=== PATIENT | female | born 1940 | race Caucasian/White ===

== ENCOUNTER 2016-08-26 16:20 | Inpatient (IN) | payer MEDICARE, MEDICAID ==
[~2016-08-26] VITALS: Ht 157.5 cm; Wt 52.0 kg
[~2016-08-26 16:20] MED LIST: GABA300 PO; GLUC10TA3 PO; LOTE20TA PO; METF-324 PO; NOVONP2 SQ; ONDA1TAB16 PO; PREV30CA36 PO; PROT40TA PO; TOPR50TA PO; ZOFR4TAB PO
[2016-08-26 16:21] VITALS: BP 180/78; PULSE 102; RESP 20; TEMP 99.4; O2SAT 96
[2016-08-26 16:41] VITALS: BP 197/85; PULSE 94; RESP 16; O2SAT 96
--- NOTE | 2016-08-26 16:43 | PD ---
HPI Chief Complaint: GI Complaint Time Seen by Provider: 16:40 Travel History International Travel<30 days: No Contact w/Intl Traveler<30days: No Traveled to known affect area: No History of Present Illness HPI 75-year-old female with history of diabetes, hypertension, CAD with previous CABG and stents, presents to the ER today brought in by her daughter because she 's had several days' history of nausea, burning on urination, feeling weak, headaches, 5 at 10 chest discomfort. She denies any shortness of breath, diarrhea, or other symptoms. Modifying Factors: None Associated Signs & Symptoms: Nausea, vomiting, burning on urination, feeling weak, headaches, chest discomfort Risk Factors: Diabetic, heart history PFSH Past Medical History Hx Anticoagulant Therapy: Yes (ASA) Arthritis: Yes Asthma: No Autoimmune Disease: No Blood Disorders: No Anxiety: Yes Depression: Yes Heart Rhythm Problems: No Cancer: No Cardiovascular Problems: Yes High Cholesterol: Yes Chemotherapy: No Chest Pain: Yes Congestive Heart Failure: No COPD: No Cerebrovascular Accident: No Coronary Artery Disease: Yes Diabetes: Yes Diminished Hearing: No Endocrine: Yes GERD: No Glaucoma: No Genitourinary: No Headaches: Yes Hepatitis: No Hiatal Hernia: No Hypertension: Yes Immune Disorder: No Kidney Stones: No Musculoskeletal: Yes Neurologic: No Psychiatric: No Reproductive: No Respiratory: No Migraines: No Myocardial Infarction: Yes Radiation Therapy: No Renal Failure: No Seizures: No Sickle Cell Disease: No Sleep Apnea: No Thyroid Disease: No Ulcer: No Past Surgical History Abdominal Surgery: Yes (gallbladder removed) AICD: No Appendectomy: Yes (stones) Arteriovenous Shunt: No Cardiac Surgery: Yes (open heart (2002)) Cholecystectomy: No Coronary Artery Bypass Graft: Yes Ear Surgery: No Endocrine Surgery: No Eye Surgery: No Genitourinary Surgery: No Gynecologic Surgery: No Insulin Pump: No Joint Replacement: No Oral Surgery: No Thoracic Surgery: No Social History Alcohol Use: No Tobacco Use: No Substance Use: No Allergies-Medications (Allergen,Severity, Reaction): Coded Allergies: No Known Allergies (Verified , 08/26/16) Reported Meds & Prescriptions Reported Meds & Active Scripts Active Zofran (Ondansetron HCl) 4 Mg Tab 4 Mg PO Q6HR PRN Protonix (Pantoprazole Sodium) 40 Mg Tab 40 Mg PO DAILY Reported Metoprolol Tartrate 50 Mg Tab 50 Mg PO DAILY Metformin ER (Metformin HCl) 1,000 Mg Kamran 1,000 Mg PO BID With evening meal Prevacid (Lansoprazole) 30 Mg Capdr 30 Mg PO DAILY Novolin N Inj (Insulin Human NPH) 1,000 Unit/10 Ml Vial 20 Units SQ HS Novolin N Inj (Insulin Human NPH) 1,000 Unit/10 Ml Vial 10 Units SQ DAILY Glipizide 10 Mg Tab 10 Mg PO DAILY Take 30 minutes before a meal Gabapentin 300 Mg Cap 300 Mg PO TID Lotensin (Benazepril HCl) 20 Mg Tab 20 Mg PO DAILY Review of Systems Except as stated in HPI: all other systems reviewed are Neg Physical Exam Narrative GENERAL: Pleasant elderly female patient currently in mild distress. Awake and oriented 3. SKIN: Focused skin assessment warm/dry. HEAD: Atraumatic. Normocephalic. EYES: Pupils equal and round. No scleral icterus. No injection or drainage. ENT: No nasal bleeding or discharge. Mucous membranes pink and moist. NECK: Trachea midline. No JVD. CARDIOVASCULAR: Regular rate and rhythm. No murmur appreciated. RESPIRATORY: No accessory muscle use. Clear to auscultation. Breath sounds equal bilaterally. GASTROINTESTINAL: Abdomen soft, non-tender, nondistended. Hepatic and splenic margins not palpable. MUSCULOSKELETAL: No obvious deformities. No clubbing. No cyanosis. No edema. NEUROLOGICAL: Awake and alert. No obvious cranial nerve deficits. Motor grossly within normal limits. Normal speech. PSYCHIATRIC: Appropriate mood and affect; insight and judgment normal. Data Data Last Documented VS Vital Signs Date Time Temp Pulse Resp B/P Pulse Ox O2 Delivery O2 Flow Rate FiO2 08/26/16 16:41 94 16 197/85 96 Room Air 08/26/16 16:21 99.4 Orders Electrocardiogram (08/26/16 16:40) Complete Blood Count With Diff (08/26/16 16:40) Comprehensive Metabolic Panel (08/26/16 16:40) Lactic Acid Sepsis Protocol (08/26/16 16:40) Lipase (08/26/16 16:40) Ckmb (Isoenzyme) Profile (08/26/16 16:40) Troponin I (08/26/16 16:40) Urinalysis - C+S If Indicated (08/26/16 16:40) Blood Culture (08/26/16 16:40) Chest, Single Ap (08/26/16 16:40) Blood Glucose (08/26/16 16:40) Ecg Monitoring (08/26/16 16:40) Iv Access Insert/Monitor (08/26/16 16:40) Oximetry (08/26/16 16:40) Oxygen Administration (08/26/16 16:40) Urine Culture (08/26/16 17:00) Piperacil-Tazo 4.5 Gm Premix (Zosyn 4.5 (08/26/16 17:27) Admit To Inpatient (08/26/16 ) Code Status (08/26/16 18:24) Vital Signs (Adult) Q4H (08/26/16 18:24) Activity Oob With Assistance (08/26/16 18:24) Diet Regular Basic (08/26/16 Dinner) Sodium Chlor 0.9% 1000 Ml Inj (Ns 1000 M (08/26/16 18:24) Sodium Chloride 0.9% Flush (Ns Flush) (08/26/16 18:30) Sodium Chloride 0.9% Flush (Ns Flush) (08/26/16 21:00) Acetaminophen (Tylenol) (08/26/16 18:30) Ondansetron Inj (Zofran Inj) (08/26/16 18:30) Complete Blood Count With Diff (08/27/16 06:00) Creatine Kinase (Cpk) (08/26/16 18:24) Creatine Kinase (Cpk) (08/27/16 00:24) Pt Request For Service (08/26/16 18:24) Enoxaparin Inj (Lovenox Inj) (08/26/16 20:00) Naloxone Inj (Narcan Inj) (08/26/16 18:30) Inpatient Certification (08/26/16 ) Clonidine (Catapres) (08/26/16 18:30) Piperacil-Tazo 3.375 Gm Premix (Zosyn 3. (08/27/16 06:00) Labs Laboratory Tests Test 08/26/16 08/26/16 08/26/16 16:45 16:50 17:00 White Blood Count 9.5 TH/MM3 Red Blood Count 4.46 MIL/MM3 Hemoglobin 11.8 GM/DL Hematocrit 36.3 % Mean Corpuscular Volume 81.4 FL Mean Corpuscular Hemoglobin 26.5 PG Mean Corpuscular Hemoglobin 32.5 % Concent Red Cell Distribution Width 13.8 % Platelet Count 274 TH/MM3 Mean Platelet Volume 8.4 FL Neutrophils (%) (Auto) 79.5 % Lymphocytes (%) (Auto) 8.0 % Monocytes (%) (Auto) 10.2 % Eosinophils (%) (Auto) 1.9 % Basophils (%) (Auto) 0.4 % Neutrophils # (Auto) 7.6 TH/MM3 Lymphocytes # (Auto) 0.8 TH/MM3 Monocytes # (Auto) 1.0 TH/MM3 Eosinophils # (Auto) 0.2 TH/MM3 Basophils # (Auto) 0.0 TH/MM3 CBC Comment DIFF FINAL Differential Comment Sodium Level 137 MEQ/L Potassium Level 4.5 MEQ/L Chloride Level 104 MEQ/L Carbon Dioxide Level 24.3 MEQ/L Anion Gap 9 MEQ/L Blood Urea Nitrogen 25 MG/DL Creatinine 1.06 MG/DL Estimat Glomerular Filtration 51 ML/MIN Rate Random Glucose 186 MG/DL Calcium Level 9.3 MG/DL Total Bilirubin 0.3 MG/DL Aspartate Amino Transf 24 U/L (AST/SGOT) Alanine Aminotransferase 19 U/L (ALT/SGPT) Alkaline Phosphatase 162 U/L Total Creatine Kinase 95 U/L Troponin I LESS THAN 0.02 NG/ML Total Protein 7.7 GM/DL Albumin 3.3 GM/DL Lipase 132 U/L Lactic Acid Level 3.0 mmol/L Urine Color YELLOW Urine Turbidity CLOUDY Urine pH 5.5 Urine Specific [place] 1.026 Urine Protein 30 mg/dL Urine Glucose (UA) TRACE mg/dL Urine Ketones NEG mg/dL Urine Occult Blood SMALL Urine Nitrite NEG Urine Bilirubin NEG Urine Urobilinogen 2.0 MG/DL Urine Leukocyte Esterase LARGE Urine RBC 16 /hpf Urine WBC 157 /hpf Urine Squamous Epithelial 41 /hpf Cells Urine Transitional Epithelial 1 /hpf Cells Urine Renal Epithelial Cells 1 /hpf Urine Bacteria MANY /hpf Urine Mucus FEW /lpf Microscopic Urinalysis Comment CATH-CULTURE IND MDM Medical Decision Making Medical Screen Exam Complete: Yes Emergency Medical Condition: Yes Medical Record Reviewed: Yes Interpretation(s) EKG shows sinus tachycardia rate of 100 bpm with no signs of acute ST-T changes. Laboratory Tests Test 5/7/17 5/7/17 5/7/17 16:45 16:50 17:00 Mean Corpuscular Hemoglobin 26.5 PG (27.0-34.0) Neutrophils (%) (Auto) 79.5 % (16.0-70.0) Lymphocytes (%) (Auto) 8.0 % (9.0-44.0) Monocytes (%) (Auto) 10.2 % (0.0-8.0) Lymphocytes # (Auto) 0.8 TH/MM3 (1.0-4.8) Monocytes # (Auto) 1.0 TH/MM3 (0-0.9) Blood Urea Nitrogen 25 MG/DL (7-18) Creatinine 1.06 MG/DL (0.50-1.00) Estimat Glomerular Filtration 51 ML/MIN (>89) Rate Random Glucose 186 MG/DL (74-106) Alkaline Phosphatase 162 U/L (45-117) Troponin I LESS THAN 0.02 NG/ML (0.02-0.05) Albumin 3.3 GM/DL (3.4-5.0) Lactic Acid Level 3.0 mmol/L (0.4-2.0) Urine Turbidity CLOUDY (CLEAR) Urine Protein 30 mg/dL (NEG-TRACE) Urine Occult Blood SMALL (NEG) Urine Leukocyte Esterase LARGE (NEG) Urine RBC 16 /hpf (0-3) Urine WBC 157 /hpf (0-5) Urine Bacteria MANY /hpf (NONE) Urine Mucus FEW /lpf (OCC) Last 24 hours Impressions Chest X-Ray 08/26/16 1640 Signed Impressions: Service Date/Time: Friday, August 26, 2016 16:44 - CONCLUSION: 1. Basilar atelectasis without dense consolidation or effusion. Manan Coyle MD Differential Diagnosis General weakness, headaches, chest discomfort, urinary symptoms, nausea and vomitinggastroenteritis versus viral syndrome versus pneumonia versus UTI versus sepsis versus dehydration versus metabolic issues Narrative Course Chest x-ray did not show any signs of acute processes. Patient is tachycardic in the ER. She has obvious UTI. IV antibiotics are initiated after cultures are drawn. At this point, there is concern for sepsis. My plan would be to admit the patient for further treatment. Case is admitted to hospitalist service. Diagnosis Primary Impression: UTI (urinary tract infection) Additional Impression: Sepsis Admitting Information Admitting Physician Requests: Admit Inez Fragoso MD August 26, 2016 16:43
[2016-08-26] MEDS ORDERED: NOVONP2 SQ ×2 (16:54)
[2016-08-26] MEDS ORDERED: GLIP10TA6 PO (16:54)
[2016-08-26] MEDS ORDERED: METF-382 PO (16:54)
[2016-08-26] MEDS ORDERED: METO50TA PO (16:54)
[2016-08-26] MEDS ORDERED: LOTE20TA PO (16:54)
[2016-08-26] MEDS ORDERED: PREV30CA11 PO (16:54)
[2016-08-26] MEDS ORDERED: GABA300C5 PO (16:54)
[2016-08-26 17:03] LABS: AUTOMATED NEUTROPHIL # 7.6 TH/MM3 (1.8-7.7); BASOPHIL % 0.4 % (0.0-2.0); EOSINOPHIL # 0.2 TH/MM3 (0-0.4); EOSINOPHIL % 1.9 % (0.0-4.0); HEMATOCRIT 36.3 % (35.0-46.0); HEMO FLAGS DIFF FINAL; LYMPHOCYTE # 0.8 TH/MM3 (1.0-4.8); MEAN CELL VOLUME 81.4 FL (80.0-100.0); MEAN CORPUSCULAR HEMOGLOBIN 26.5 PG (27.0-34.0); MEAN CORPUSCULAR HGB CONC 32.5 % (32.0-36.0); MONO % 10.2 % (0.0-8.0); NEUT % 79.5 % (16.0-70.0); PLATELET COUNT 274 TH/MM3 (150-450); RED BLOOD COUNT 4.46 MIL/MM3 (4.00-5.30); RED CELL DISTRIBUTION WIDTH 13.8 % (11.6-17.2); WHITE BLOOD COUNT 9.5 TH/MM3 (4.0-11.0)
[2016-08-26 17:23] LABS: BACTERIA, URINE MANY /hpf; BLOOD, URINE SMALL (NEG); GLUCOSE,URINE TRACE mg/dL (NEG); KETONE, URINE NEG (NEG); MUCUS URINE FEW /lpf (OCC); NITRITE,URINE NEG (NEG); PH, URINE 5.5 (5.0-8.5); RENAL EPITHELIAL CELLS 1 /hpf; SQUAMOUS EPITHELIAL CELL URINE 41 /hpf (0-5); TRANSITIONAL EPI CELLS, URINE 1 /hpf; URINE COLOR YELLOW (YELLW/STRAW)
[2016-08-26 17:24] LABS: COMMENT (UR) CATH-CULTURE IND; CULTURE IF INDICATED CATH CULTURE IND
[2016-08-26] MEDS ORDERED: PIPERACIL-TAZO 4.5 GM PREMIX 100 ML IV STA (17:27)
[2016-08-26 18:01] LABS: ALKALINE PHOSPHATASE 162 U/L (45-117); ALT (GPT) 19 U/L (10-53); ANION GAP 9 MEQ/L (5-15); AST (GOT) 24 U/L (15-37); BICARBONATE 24.3 MEQ/L (21.0-32.0); BLOOD UREA NITROGEN 25 MG/DL (7-18); CHLORIDE 104 MEQ/L (98-107); CREATINE KINASE 95 U/L (26-192); GLOMERULAR FILTRATION RATE 51 ML/MIN (>89); POTASSIUM 4.5 MEQ/L (3.5-5.1); SODIUM (NA) 137 MEQ/L (136-145); TOTAL BILIRUBIN ADULT 0.3 MG/DL (0.2-1.0)
--- NOTE | 2016-08-26 18:22 | RADRPT ---
EXAM DATE/TIME: 08/26/2016 16:44 [facility] COMPARISON: CHEST SINGLE AP, March 19, 2016, 23:49. INDICATIONS : Chest pain. MEDICAL HISTORY : Coronary artery disease. SURGICAL HISTORY : CABG. ENCOUNTER: Initial ACUITY: 1 day PAIN SCORE: 0/10 LOCATION: Bilateral chest FINDINGS: There is basilar opacity most characteristic of atelectasis. Low lung volumes. No effusion. No pneumo thorax. Postoperative CABG. CONCLUSION: 1. Basilar atelectasis without dense consolidation or effusion. Manan Coyle MD on August 26, 2016 at 18:19 Board Certified Radiologist. This report was verified electronically.
[2016-08-26] MEDS ORDERED: NALOXONE HCL 0.4 MG/ML AMP IV PRN (18:30)
[2016-08-26] MEDS ORDERED: SODIUM CHLORIDE 0.9% FLUSH 10 ML FLUSH IV FLUSH PRN (18:30)
[2016-08-26] MEDS ORDERED: ACETAMINOPHEN 325 MG TAB PO PRN (18:30)
[2016-08-26] MEDS ORDERED: cloNIDine HCL 0.1 MG TAB PO PRN (18:30)
[2016-08-26] MEDS ORDERED: ONDANSETRON HCL 4 MG/2 ML VIAL IVP PRN (18:30)
--- NOTE | 2016-08-26 18:39 | HHI.HP ---
[facility] García Jordan M.D. Admission Diagnosis Diagnoses: (1) Sepsis Diagnosis: Principal (2) UTI (urinary tract infection) Diagnosis: Principal (3) Hypertensive urgency Diagnosis: Principal Travel History International Travel<30 Days: No Contact w/Intl Traveler <30 Da: No Traveled to Known Affected Are: No Sepsis Criteria SIRS Criteria (2 or more): Temp > 100.9 or < 96.8, Heart rate over 90 Sepsis Criteria (SIRS+source): Infect source susp/known Criteria Outcome: Meets severe sepsis criteria History of Present Illness Mrs. Zimmer is a 75 year old female. She is brought in with abdominal pain, dyspepsia, and vomiting. Findings indicate sepsis from a UTI. She also has HTN Urgency. Symptoms came on with in the last 48 hours. She has a history of UTIs with her last UTI about one year ago. No known prior history of Sepsis. No other complaints. Medical condition discussed with patient and family present in room. Review of Systems Constitutional: COMPLAINS OF: Fatigue, Fever, DENIES: Chills Endocrine: COMPLAINS OF: Polyuria, DENIES: Polydipsia, Polyphagia Eyes: DENIES: Blurred vision, Diplopia Ears, nose, mouth, throat: DENIES: Hearing loss, Vertigo Respiratory: DENIES: Cough, Shortness of breath Cardiovascular: DENIES: Chest pain, Palpitations, Syncope Gastrointestinal: DENIES: Abdominal pain, Black stools, Bloody stools Musculoskeletal: DENIES: Joint pain, Muscle aches Integumentary: DENIES: Abnormal pigmentation Hematologic/lymphatic: DENIES: Bruising Immunologic/allergic: DENIES: Eczema, Urticaria Neurologic: DENIES: Abnormal gait, Headache Psychiatric: DENIES: Anxiety, Confusion Past Family Social History Past Medical History CAD Old [place] HTN Anxiety Past Surgical History Cholecystectomy CABG Reported Medications Reported Meds & Active Scripts Active Zofran (Ondansetron HCl) 4 Mg Tab 4 Mg PO Q6HR PRN Protonix (Pantoprazole Sodium) 40 Mg Tab 40 Mg PO DAILY Reported Metoprolol Tartrate 50 Mg Tab 50 Mg PO DAILY Metformin ER (Metformin HCl) 1,000 Mg Kamran 1,000 Mg PO BID With evening meal Prevacid (Lansoprazole) 30 Mg Capdr 30 Mg PO DAILY Novolin N Inj (Insulin Human NPH) 1,000 Unit/10 Ml Vial 20 Units SQ HS Novolin N Inj (Insulin Human NPH) 1,000 Unit/10 Ml Vial 10 Units SQ DAILY Glipizide 10 Mg Tab 10 Mg PO DAILY Take 30 minutes before a meal Gabapentin 300 Mg Cap 300 Mg PO TID Lotensin (Benazepril HCl) 20 Mg Tab 20 Mg PO DAILY Allergies: Coded Allergies: No Known Allergies (Verified , 08/26/16) Family History DM2 Hyperlipidemia HTN CAD Social History No smoking No alcohol No drug abuse Physical Exam Vital Signs Vital Signs Date Time Temp Pulse Resp B/P Pulse Ox O2 Delivery O2 Flow Rate FiO2 08/26/16 16:41 94 16 197/85 96 Room Air 08/26/16 16:21 99.4 102 20 180/78 96 Room Air Physical Exam GENERAL: NAD, A&Ox3 SKIN: Warm and dry. HEAD: Normocephalic. EYES: No scleral icterus. No injection or drainage. NECK: Supple, trachea midline. No JVD or lymphadenopathy. CARDIOVASCULAR: Regular rate and rhythm without murmurs, gallops, or rubs. RESPIRATORY: Breath sounds equal bilaterally. No accessory muscle use. GASTROINTESTINAL: Abdomen soft, non-tender, nondistended. MUSCULOSKELETAL: No cyanosis, or edema. BACK: Nontender without obvious deformity. No CVA tenderness. Laboratory Laboratory Tests Test 08/26/16 08/26/16 08/26/16 16:45 16:50 17:00 White Blood Count 9.5 Red Blood Count 4.46 Hemoglobin 11.8 Hematocrit 36.3 Mean Corpuscular Volume 81.4 Mean Corpuscular Hemoglobin 26.5 Mean Corpuscular Hemoglobin 32.5 Concent Red Cell Distribution Width 13.8 Platelet Count 274 Mean Platelet Volume 8.4 Neutrophils (%) (Auto) 79.5 Lymphocytes (%) (Auto) 8.0 Monocytes (%) (Auto) 10.2 Eosinophils (%) (Auto) 1.9 Basophils (%) (Auto) 0.4 Neutrophils # (Auto) 7.6 Lymphocytes # (Auto) 0.8 Monocytes # (Auto) 1.0 Eosinophils # (Auto) 0.2 Basophils # (Auto) 0.0 CBC Comment DIFF FINAL Differential Comment Sodium Level 137 Potassium Level 4.5 Chloride Level 104 Carbon Dioxide Level 24.3 Anion Gap 9 Blood Urea Nitrogen 25 Creatinine 1.06 Estimat Glomerular Filtration 51 Rate Random Glucose 186 Calcium Level 9.3 Total Bilirubin 0.3 Aspartate Amino Transf 24 (AST/SGOT) Alanine Aminotransferase 19 (ALT/SGPT) Alkaline Phosphatase 162 Total Creatine Kinase 95 Troponin I LESS THAN 0.02 Total Protein 7.7 Albumin 3.3 Lipase 132 Lactic Acid Level 3.0 Urine Color YELLOW Urine Turbidity CLOUDY Urine pH 5.5 Urine Specific [place] 1.026 Urine Protein 30 Urine Glucose (UA) TRACE Urine Ketones NEG Urine Occult Blood SMALL Urine Nitrite NEG Urine Bilirubin NEG Urine Urobilinogen 2.0 Urine Leukocyte Esterase LARGE Urine RBC 16 Urine WBC 157 Urine Squamous Epithelial 41 Cells Urine Transitional Epithelial 1 Cells Urine Renal Epithelial Cells 1 Urine Bacteria MANY Urine Mucus FEW Microscopic Urinalysis Comment CATH-CULTURE IND Date/Time Procedure Status Source Growth 08/26/16 17:00 Urine Culture Received Urine Catheterized Urine Pending 08/26/16 16:50 Aerobic Blood Culture Received Blood Peripheral Pending 08/26/16 16:50 Anaerobic Blood Culture Received Blood Peripheral Pending Result Diagram: 08/26/16 1645 08/26/16 1645 Imaging Last Impressions Chest X-Ray 08/26/16 1640 Signed Impressions: Service Date/Time: Friday, August 26, 2016 16:44 - CONCLUSION: 1. Basilar atelectasis without dense consolidation or effusion. Manan Coyle MD Septic Shock Reassessment Heart: Regular rate and rhythm Lungs: Clear Skin: Warm Peripheral Pulses: Bounding Right Radial Bounding Left Radial Bounding Right Popliteal Bounding Left Popliteal Bounding Right Dorsalis Pedis Bounding Left Dorsalis Pedis Bounding Right Posterior Tibial Bounding Left Posterior Tibial Capillary Refill: Brisk, >2 seconds Assessment and Plan Problem List: (1) Sepsis ICD Code: A41.9 Status: Acute (2) UTI (urinary tract infection) ICD Code: N39.0 Status: Acute (3) Hypertensive urgency ICD Code: I16.0 Status: Acute (4) Vomiting ICD Code: R11.10 Status: Acute Assessment and Plan Assessment and Plan 75 year old female with sepsis secondary to UTI Sepsis Fevers at home and Tachycardia with UTI as infection IV Hydration Treat infection Follow vital signs UTI Zosyn Follow clinically for improvement Follow urine cultures This is the most suspected etiology for her sepsis HTN Urgency PRN clonidine Follow BP Vomiting PRN zofran Likely secondary to UTI [place] CAD Telemetry Hyperlipidemia No change to baseline treatments Anxiety Depression Continue baseline treatments DM2 Insulin Sliding Scale Follow blood sugars Diabetic Diet Physician Certification 2 Midnight Certification Type: Admission for Inpatient Services Order for Inpatient Services The services are ordered in accordance with Medicare regulations or non- Medicare payer requirements, as applicable. In the case of services not specified as inpatient-only, they are appropriately provided as inpatient services in accordance with the 2-midnight benchmark. Estimated LOS (days): 2 days is the estimated time the patient will need to remain in the hospital, assuming treatment plan goals are met and no additional complications. Post-Hospital Plan: Home Flo Alcaraz MD August 26, 2016 6:39 pm
[2016-08-26 18:53] LABS: LACTIC ACID GHOST NOT REPORTABLE
[2016-08-26] MEDS: SODIUM CHLOR 0.9% 1000 ML INJ 1,000 ML IV SCH (18:53)
[2016-08-26] MEDS: ENOXAPARIN SODIUM 40 MG/0.4 ML SYRINGE SQ SCH (18:53)
[2016-08-26 18:54] VITALS: BP 183/74; PULSE 90; RESP 13; O2SAT 96
[2016-08-26] MEDS ORDERED: GLUCAGON 1 MG/ML VIAL OTHER PRN (19:15)
[2016-08-26] MEDS ORDERED: DEXTROSE 50% IN WATER 50 ML VIAL(D50) IV PUSH PRN (19:15)
[2016-08-26] MEDS: SODIUM CHLORIDE 0.9% FLUSH 10 ML FLUSH IV FLUSH SCH (21:00)
[2016-08-26] MEDS: INSULIN ASPART SUPPLEMENTAL SCALE SQ SCH (21:33)
[2016-08-26 21:35] VITALS: BP 159/69; PULSE 88; RESP 20; O2SAT 96
[2016-08-26] MEDS: INSULIN HUMAN NPH 1,000 UNITS/10 ML VIAL SQ SCH (21:47)
[2016-08-27] VITALS (7 sets, daily range): BP systolic 90–175; BP diastolic 50–76; PULSE 63–100; RESP 16–17; TEMP 96.7–99.3; O2SAT 92–98
[2016-08-27 03:17] LABS: AUTOMATED NEUTROPHIL # 6.1 TH/MM3 (1.8-7.7); BASOPHIL # 0.1 TH/MM3 (0-0.2); BASOPHIL % 0.6 % (0.0-2.0); EOSINOPHIL # 0.1 TH/MM3 (0-0.4); EOSINOPHIL % 0.9 % (0.0-4.0); HEMATOCRIT 35.7 % (35.0-46.0); HEMO FLAGS DIFF FINAL; LYMPH % 10.7 % (9.0-44.0); LYMPHOCYTE # 0.9 TH/MM3 (1.0-4.8); MEAN CELL VOLUME 80.8 FL (80.0-100.0); MEAN CORPUSCULAR HEMOGLOBIN 26.3 PG (27.0-34.0); MEAN CORPUSCULAR HGB CONC 32.5 % (32.0-36.0); MONO % 11.3 % (0.0-8.0); NEUT % 76.5 % (16.0-70.0); PLATELET COUNT 251 TH/MM3 (150-450); RED BLOOD COUNT 4.42 MIL/MM3 (4.00-5.30); RED CELL DISTRIBUTION WIDTH 14.1 % (11.6-17.2)
[2016-08-27] MEDS: SODIUM CHLOR 0.9% 1000 ML INJ 1,000 ML IV SCH ×2 (04:08→16:32)
[2016-08-27] MEDS: PIPERACIL-TAZO 3.375 GM PREMIX 50 ML IV SCH ×2 (05:20→18:44)
[2016-08-27] MEDS: INSULIN ASPART SUPPLEMENTAL SCALE SQ SCH ×4 (06:11→21:14)
[2016-08-27] MEDS: INSULIN HUMAN NPH 1,000 UNITS/10 ML VIAL SQ SCH ×2 (09:44→21:14)
[2016-08-27] MEDS: METOPROLOL TARTRATE 50 MG TAB PO SCH (09:44)
[2016-08-27] MEDS: LISINOPRIL 20 MG TAB PO SCH (09:44)
[2016-08-27] MEDS: PANTOPRAZOLE SOD 40 MG DELAYED RELEASE TAB PO SCH (09:44)
[2016-08-27] MEDS: GABAPENTIN 300 MG CAP PO SCH ×3 (09:44→18:44)
[2016-08-27] MEDS: SODIUM CHLORIDE 0.9% FLUSH 10 ML FLUSH IV FLUSH SCH ×2 (09:45→21:00)
--- NOTE | 2016-08-27 10:38 | HHI.PR ---
Subjective Remarks Tachycardia present overnight. She is not yet stable for discharge. Additionally, it would be safest, given her degree of sepsis, to await blood cultures to pick an optimum oral therapy. No new complaints from the patient. She has some mild nausea remaining, but not like before. (she is haitian speaking, interview conducted in haitian) Objective Vital Signs Date Time Temp Pulse Resp B/P Pulse Ox O2 Delivery O2 Flow Rate FiO2 08/27/16 08:00 99.3 100 17 124/58 96 08/27/16 04:00 97.0 76 17 157/71 98 08/27/16 00:00 97.6 83 17 175/76 98 08/26/16 21:35 88 20 159/69 96 08/26/16 18:54 90 13 183/74 96 Room Air 08/26/16 16:41 94 16 197/85 96 Room Air 08/26/16 16:21 99.4 102 20 180/78 96 Room Air I/O 08/26/16 08/26/16 08/26/16 08/27/16 08/27/16 08/27/16 07:00 15:00 23:00 07:00 15:00 23:00 Intake Total 1645 ml Output Total 900 ml Balance 745 ml Intake Oral 720 ml IV Total 925 ml Output Urine Total 900 ml # Bowel Movements 4 Result Diagram: 08/27/16 0300 08/26/16 1645 Objective Remarks GENERAL: NAD, A&Ox3 SKIN: Warm and dry. HEAD: Normocephalic. EYES: No scleral icterus. No injection or drainage. NECK: Supple, trachea midline. No JVD or lymphadenopathy. CARDIOVASCULAR: Regular rate and rhythm without murmurs, gallops, or rubs. RESPIRATORY: Breath sounds equal bilaterally. No accessory muscle use. GASTROINTESTINAL: Abdomen soft, non-tender, nondistended. MUSCULOSKELETAL: No cyanosis, or edema. BACK: Nontender without obvious deformity. No CVA tenderness. A/P Problem List: (1) Sepsis ICD Code: A41.9 (2) UTI (urinary tract infection) ICD Code: N39.0 (3) Vomiting ICD Code: R11.10 (4) Hypertensive urgency ICD Code: I16.0 Assessment and Plan Sepsis HTN Urgency Vomiting Resolved Tachycardia remains UTI Await resolution of tachcyardia Further improvement in nausea should occur Follow urine cultures Continue IV Zosyn for now Flo Alcaraz MD August 27, 2016 10:38
--- NOTE | 2016-08-27 11:21 | EKG ---
Date Performed: 08/26/2016 Time Performed: 16:47:15 PTAGE: 75 years EKG: SINUS TACHYCARDIA WITH OCCASIONAL VENTRICULAR PREMATURE COMPLEXES NONSPECIFIC T-WAVE ABNORM ALITY ABNORMAL RHYTHM ECG PREVIOUS TRACING : 04/04/2010 18.09 DOCTOR: Jamin Jimenez Interpretating Date/Time 08/27/2016 11:16:23
[2016-08-27] MEDS ORDERED: VANCOMYCIN INJ 1,000 MG in SODIUM CHLOR 0.9% 250 ML INJ 250 ML IV SCH (16:00)
[2016-08-27] MEDS ORDERED: Vancomycin Consult Pharmacy 1 EA OTHER SCH (16:00)
[2016-08-27 17:35] LABS: C. DIFF EPI 027 PRESUMPTIVE NEGATIVE (NEGATIVE); C. DIFF TOXIN PCR NEGATIVE (NEGATIVE)
[2016-08-27] MEDS: ENOXAPARIN SODIUM 40 MG/0.4 ML SYRINGE SQ SCH (21:07)
[2016-08-28] MEDS: SODIUM CHLOR 0.9% 1000 ML INJ 1,000 ML IV SCH ×3 (00:52→21:01)
[2016-08-28 03:59] VITALS: BP 125/58; PULSE 64; RESP 18; TEMP 97.2; O2SAT 97
[2016-08-28] MEDS: PIPERACIL-TAZO 3.375 GM PREMIX 50 ML IV SCH ×2 (05:22→16:44)
[2016-08-28 05:44] LABS: HEMATOCRIT 28.9 % (35.0-46.0); MEAN CORPUSCULAR HGB CONC 32.9 % (32.0-36.0); PLATELET COUNT 195 TH/MM3 (150-450); RED BLOOD COUNT 3.52 MIL/MM3 (4.00-5.30); RED CELL DISTRIBUTION WIDTH 13.9 % (11.6-17.2); REVIEW FLAG FINAL
[2016-08-28 06:07] LABS: BICARBONATE 20.6 MEQ/L (21.0-32.0); POTASSIUM 3.8 MEQ/L (3.5-5.1)
[2016-08-28] MEDS: INSULIN ASPART SUPPLEMENTAL SCALE SQ SCH ×4 (06:18→20:57)
[2016-08-28 08:00] VITALS: BP 117/59; PULSE 69; RESP 16; TEMP 96.1; O2SAT 98
[2016-08-28] MEDS: SODIUM CHLORIDE 0.9% FLUSH 10 ML FLUSH IV FLUSH SCH ×2 (09:00→20:58)
[2016-08-28] MEDS: METOPROLOL TARTRATE 50 MG TAB PO SCH (09:38)
[2016-08-28] MEDS: GABAPENTIN 300 MG CAP PO SCH ×3 (09:38→16:45)
[2016-08-28] MEDS: LISINOPRIL 20 MG TAB PO SCH (09:38)
[2016-08-28] MEDS: PANTOPRAZOLE SOD 40 MG DELAYED RELEASE TAB PO SCH (09:38)
[2016-08-28] MEDS: INSULIN HUMAN NPH 1,000 UNITS/10 ML VIAL SQ SCH (09:39)
--- NOTE | 2016-08-28 10:30 | HHI.PR ---
Subjective Remarks Follow-up sepsis/UTI/hypertensive urgency 08/28/16-patient seen and examined, currently afebrile and no acute event overnight. No nausea or vomiting with by mouth intake last night however hasn' t taken anything this morning Objective Vitals Vital Signs Date Time Temp Pulse Resp B/P Pulse Ox O2 Delivery O2 Flow Rate FiO2 08/28/16 08:00 96.1 69 16 117/59 98 08/28/16 03:59 97.2 64 18 125/58 97 08/27/16 23:49 99.0 69 16 106/52 96 08/27/16 20:00 96.9 63 17 103/51 98 08/27/16 16:00 96.7 87 16 90/50 97 08/27/16 12:00 97.0 63 16 100/50 92 I/O 08/27/16 08/27/16 08/27/16 08/28/16 08/28/16 08/28/16 07:00 15:00 23:00 07:00 15:00 23:00 Intake Total 1645 ml 884 ml 859 ml 791 ml Output Total 900 ml Balance 745 ml 884 ml 859 ml 791 ml Intake Oral 720 ml 360 ml 120 ml 120 ml IV Total 925 ml 524 ml 739 ml 671 ml Output Urine Total 900 ml # Voids 4 2 3 # Bowel Movements 4 6 Result Diagram: 08/28/16 0520 08/28/16 0520 Imaging Last Impressions Chest X-Ray 08/26/16 1640 Signed Impressions: Service Date/Time: Friday, August 26, 2016 16:44 - CONCLUSION: 1. Basilar atelectasis without dense consolidation or effusion. Manan Coyle MD Objective Remarks GENERAL: NAD SKIN: Warm and dry. HEAD: Normocephalic. EYES: No scleral icterus. No injection or drainage. NECK: Supple, trachea midline. No JVD or lymphadenopathy. CARDIOVASCULAR: Regular rate and rhythm without murmurs, gallops, or rubs. RESPIRATORY: Breath sounds equal bilaterally. No accessory muscle use. GASTROINTESTINAL: Abdomen soft, non-tender, nondistended. MUSCULOSKELETAL: No cyanosis, or edema. BACK: Nontender without obvious deformity. No CVA tenderness. A/P Problem List: (1) Sepsis ICD Code: A41.9 Status: Acute (2) UTI (urinary tract infection) ICD Code: N39.0 Status: Acute (3) Hypertensive urgency ICD Code: I16.0 Status: Acute (4) Vomiting ICD Code: R11.10 Status: Acute (5) ARF (acute renal failure) ICD Code: N17.9 Status: Acute (6) Diabetes mellitus, type II ICD Code: E11.9 Status: Acute (7) Hypoglycemia associated with diabetes ICD Code: E11.649 Status: Acute Assessment and Plan 75-year-old female with Sepsis: Initially thought to be due to UTI however urine culture negative Currently on vancomycin and Zosyn pending blood culture NTD C. difficile PCR negative UTI: On Zosyn however urine culture now negative Acute renal failure: Slight Worsening renal indices,increase IV fluid hydration to 125ml/hr and monitor BUN and creatinine. Avoid all nephrotoxic drugs Hypoglycemia associated with diabetes type 2 Hold NPH patient will decrease intake and low BG Continue insulin sliding scale medium with fingerstick blood glucose monitoring Hypertensive urgency Resolved Continue outpatient medication including lisinopril and Lopressor with holding parameters Generalized weakness PT consult to treat and eval DVT prophylaxis: Lovenox Discharge Planning Likely discharge 08/29/16 Bryon Ty MD August 28, 2016 10:30
[2016-08-28 12:00] VITALS: BP 132/61; PULSE 57; RESP 16; TEMP 97.9; O2SAT 96
[2016-08-28 16:00] VITALS: BP 158/70; PULSE 64; RESP 16; TEMP 96.9; O2SAT 96
[2016-08-28] MEDS ORDERED: VANCOMYCIN 1,000 MG/NS 250 ML IV SCH ×2 (17:00)
[2016-08-28 20:00] VITALS: BP 141/65; PULSE 70; RESP 16; TEMP 99.1; O2SAT 95
[2016-08-28] MEDS: ENOXAPARIN SODIUM 40 MG/0.4 ML SYRINGE SQ SCH (20:59)
[2016-08-28] MEDS: LACTOBACILLUS ACIDOPHILUS TAB PO SCH (20:59)
[2016-08-29] VITALS: BP 135/61; PULSE 72; RESP 16; TEMP 98.2; O2SAT 98
[2016-08-29] MEDS: PIPERACIL-TAZO 3.375 GM PREMIX 50 ML IV SCH (05:38)
[2016-08-29] MEDS: SODIUM CHLOR 0.9% 1000 ML INJ 1,000 ML IV SCH ×2 (05:38→10:25)
[2016-08-29] MEDS: INSULIN ASPART SUPPLEMENTAL SCALE SQ SCH ×2 (06:04→11:06)
[2016-08-29 08:00] VITALS: BP 148/68; PULSE 58; RESP 18; TEMP 98; O2SAT 93
[2016-08-29 08:05] LABS: BICARBONATE 21.3 MEQ/L (21.0-32.0); POTASSIUM 3.5 MEQ/L (3.5-5.1)
[2016-08-29] MEDS: METOPROLOL TARTRATE 50 MG TAB PO SCH (09:00)
[2016-08-29] MEDS: LISINOPRIL 20 MG TAB PO SCH (09:11)
[2016-08-29] MEDS: PANTOPRAZOLE SOD 40 MG DELAYED RELEASE TAB PO SCH (09:11)
[2016-08-29] MEDS: LACTOBACILLUS ACIDOPHILUS TAB PO SCH (09:11)
[2016-08-29] MEDS: GABAPENTIN 300 MG CAP PO SCH ×2 (09:11→12:43)
[2016-08-29] MEDS: SODIUM CHLORIDE 0.9% FLUSH 10 ML FLUSH IV FLUSH SCH (09:11)
[2016-08-29 12:00] VITALS: BP 160/68; PULSE 65; RESP 19; TEMP 97.7; O2SAT 96
--- NOTE | 2016-08-29 12:52 | HHI.PR ---
Subjective Remarks Follow-up sepsis/UTI/hypertensive urgency 08/28/16-patient seen and examined, currently afebrile and no acute event overnight. No nausea or vomiting with by mouth intake last night however hasn' t taken anything this morning 08/29/16-patient seen and examined, stable and no acute event overnight. Case discussed this case management specialist regarding discharge disposition. Objective Vitals Vital Signs Date Time Temp Pulse Resp B/P Pulse Ox O2 Delivery O2 Flow Rate FiO2 08/29/16 08:00 98.0 58 18 148/68 93 08/29/16 00:00 98.2 72 16 135/61 98 08/28/16 20:00 99.1 70 16 141/65 95 08/28/16 16:00 96.9 64 16 158/70 96 I/O 08/28/16 08/28/16 08/28/16 08/29/16 08/29/16 08/29/16 07:00 15:00 23:00 07:00 15:00 23:00 Intake Total 791 ml 360 ml 1558 ml 1747 ml Output Total 600 ml Balance 791 ml -240 ml 1558 ml 1747 ml Intake Oral 120 ml 360 ml 380 ml 360 ml IV Total 671 ml 1178 ml 1387 ml Output Urine Total 600 ml # Voids 3 2 3 # Bowel Movements 0 Result Diagram: 08/28/16 0520 08/29/16 0640 Objective Remarks GENERAL: NAD SKIN: Warm and dry. HEAD: Normocephalic. EYES: No scleral icterus. No injection or drainage. NECK: Supple, trachea midline. No JVD or lymphadenopathy. CARDIOVASCULAR: Regular rate and rhythm without murmurs, gallops, or rubs. RESPIRATORY: Breath sounds equal bilaterally. No accessory muscle use. GASTROINTESTINAL: Abdomen soft, non-tender, nondistended. MUSCULOSKELETAL: No cyanosis, or edema. BACK: Nontender without obvious deformity. No CVA tenderness. A/P Problem List: (1) Sepsis ICD Code: A41.9 Status: Resolved (2) UTI (urinary tract infection) ICD Code: N39.0 Status: Resolved (3) Hypertensive urgency ICD Code: I16.0 Status: Resolved (4) Vomiting ICD Code: R11.10 Status: Resolved (5) ARF (acute renal failure) ICD Code: N17.9 Status: Resolved (6) Diabetes mellitus, type II ICD Code: E11.9 Status: Chronic (7) Hypoglycemia associated with diabetes ICD Code: E11.649 Status: Resolved Assessment and Plan 75-year-old female with Sepsis: Resolved Currently on vancomycin and Zosyn and blood culture NTDx 3 days therefore will discontinue all antibiotics C. difficile PCR negative UTI: On Zosyn however urine culture now negative Acute renal failure: Resolved with IV fluid hydration 125ml/hr and monitor BUN and creatinine. Avoid all nephrotoxic drugs Hypoglycemia associated with diabetes type 2-Resolved Resume NPH Continue insulin sliding scale medium with fingerstick blood glucose monitoring Hypertensive urgency Resolved Continue outpatient medication including lisinopril and Lopressor with holding parameters Generalized weakness PT consult to treat and eval DVT prophylaxis: Lovenox Discharge Planning Likely discharge 08/29/16 Bryon Ty MD August 29, 2016 12:51
--- NOTE | 2016-08-29 13:20 | HHI.FF ---
Face to Face Verification Diagnosis: (1) Sepsis (2) Hypoglycemia associated with diabetes (3) Hypertensive urgency (4) ARF (acute renal failure) (5) Diabetes mellitus, type II Physical Therapy Order: Evaluate and Treat Home Health Nursing Order: Signs/symptoms of disease process Nursing assessment with vital signs I have seen patient Nat Yusuf on 08/29/16. My clinical findings support the need for the requested home health care services because: Deconditioned w/ increased weakness I certify that my clinical findings support that this patient is homebound because: Poor cardiac reserve Bryon Ty MD August 29, 2016 13:20
--- NOTE | 2016-08-29 13:22 | HHI.DS ---
Discharge Summary Admission Date August 26, 2016 at 18:50 Discharge Date: August 29, 2016 Admitting Diagnosis (1) Sepsis ICD Code: A41.9 (2) UTI (urinary tract infection) ICD Code: N39.0 (3) Hypertensive urgency ICD Code: I16.0 (4) Vomiting ICD Code: R11.10 (5) ARF (acute renal failure) ICD Code: N17.9 (6) Diabetes mellitus, type II ICD Code: E11.9 (7) Hypoglycemia associated with diabetes ICD Code: E11.649 Procedures none Brief History - From Admission Mrs. Zimmer is a 75 year old female. She is brought in with abdominal pain, dyspepsia, and vomiting. Findings indicate sepsis from a UTI. She also has HTN Urgency. Symptoms came on with in the last 48 hours. She has a history of UTIs with her last UTI about one year ago. No known prior history of Sepsis. No other complaints. Medical condition discussed with patient and family present in room. CBC/BMP: 08/28/16 0520 08/29/16 0640 Significant Findings Laboratory Tests Test 08/26/16 08/26/16 08/26/16 08/26/16 16:45 16:50 17:00 20:15 Mean Corpuscular Hemoglobin 26.5 PG (27.0-34.0) Neutrophils (%) (Auto) 79.5 % (16.0-70.0) Lymphocytes (%) (Auto) 8.0 % (9.0-44.0) Monocytes (%) (Auto) 10.2 % (0.0-8.0) Lymphocytes # (Auto) 0.8 TH/MM3 (1.0-4.8) Monocytes # (Auto) 1.0 TH/MM3 (0-0.9) Blood Urea Nitrogen 25 MG/DL (7-18) Creatinine 1.06 MG/DL (0.50-1.00) Estimat Glomerular Filtration 51 ML/MIN (>89) Rate Random Glucose 186 MG/DL (74-106) Alkaline Phosphatase 162 U/L (45-117) Troponin I LESS THAN 0.02 NG/ML (0.02-0.05) Albumin 3.3 GM/DL (3.4-5.0) Lactic Acid Level 3.0 mmol/L 2.4 mmol/L (0.4-2.0) (0.4-2.0) Urine Turbidity CLOUDY (CLEAR) Urine Protein 30 mg/dL (NEG-TRACE) Urine Occult Blood SMALL (NEG) Urine Leukocyte Esterase LARGE (NEG) Urine RBC 16 /hpf (0-3) Urine WBC 157 /hpf (0-5) Urine Bacteria MANY /hpf (NONE) Urine Mucus FEW /lpf (OCC) Test 08/27/16 08/28/16 08/29/16 03:00 05:20 06:40 Mean Corpuscular Hemoglobin 26.3 PG (27.0-34.0) Neutrophils (%) (Auto) 76.5 % (16.0-70.0) Monocytes (%) (Auto) 11.3 % (0.0-8.0) Lymphocytes # (Auto) 0.9 TH/MM3 (1.0-4.8) Red Blood Count 3.52 MIL/MM3 (4.00-5.30) Hemoglobin 9.5 GM/DL (11.6-15.3) Hematocrit 28.9 % (35.0-46.0) Chloride Level 115 MEQ/L 113 MEQ/L (98-107) (98-107) Carbon Dioxide Level 20.6 MEQ/L (21.0-32.0) Blood Urea Nitrogen 28 MG/DL (7-18) Creatinine 1.23 MG/DL (0.50-1.00) Estimat Glomerular Filtration 43 ML/MIN (>89) 69 ML/MIN (>89) Rate Random Glucose 58 MG/DL (74-106) Calcium Level 7.9 MG/DL 8.2 MG/DL (8.5-10.1) (8.5-10.1) Imaging Last Impressions Chest X-Ray 08/26/16 1640 Signed Impressions: Service Date/Time: Friday, August 26, 2016 16:44 - CONCLUSION: 1. Basilar atelectasis without dense consolidation or effusion. Manan Coyle MD PE at Discharge GENERAL: NAD SKIN: Warm and dry. HEAD: Normocephalic. EYES: No scleral icterus. No injection or drainage. NECK: Supple, trachea midline. No JVD or lymphadenopathy. CARDIOVASCULAR: Regular rate and rhythm without murmurs, gallops, or rubs. RESPIRATORY: Breath sounds equal bilaterally. No accessory muscle use. GASTROINTESTINAL: Abdomen soft, non-tender, nondistended. MUSCULOSKELETAL: No cyanosis, or edema. BACK: Nontender without obvious deformity. No CVA tenderness. Hospital Course Patient admitted due to sepsis secondary to UTI for which she was started on IV antibiotics and all culture were monitored. Secondary to worsening renal function should place on aggressive IV fluid hydration with monitor BUN and creatinine. She had episode of asymptomatic hypoglycemia which resolved after medication were adjusted accordingly. PT was consulted and DVT as well as GI prophylaxis with provided. Prior to discharge, her vitals remained stable and her condition improved. All antibiotics were discontinued. Pt Condition on Discharge: Stable Discharge Disposition: Disch w/ Home Health Serv Discharge Time: > 30 minutes Discharge Instructions DIET: Follow Instructions for: Diabetic Diet Follow up Referrals: PCP Follow-up - 1 Week Continued Medications: Benazepril (Lotensin) 20 Mg Tab 20 MG PO DAILY Blood Pressure Management #30 Ref 0 TAB Gabapentin (Gabapentin) 300 Mg Cap 300 MG PO TID #90 Ref 0 CAP Glipizide (Glipizide) 10 Mg Tab 10 MG PO DAILY Take 30 minutes before a meal Blood Sugar Management #30 Ref 0 TAB Insulin Human NPH Inj (Novolin N Inj) 1,000 Unit/10 Ml Vial 20 UNITS SQ HS Blood Sugar Management #10 Ref 0 ML Metformin ER (Metformin ER) 1,000 Mg Kamran 1000 MG PO BID With evening meal Blood Sugar Management #30 Ref 0 TAB Metoprolol Tartrate (Metoprolol Tartrate) 50 Mg Tab 50 MG PO DAILY #30 Ref 0 TAB Pantoprazole (Protonix) 40 Mg Tab 40 MG PO DAILY Reflux #30 Ref 0 TAB Discontinued Medications: Lansoprazole (Prevacid) 30 Mg Capdr 30 MG PO DAILY Ref 0 CAP Ondansetron (Zofran) 4 Mg Tab 4 MG PO Q6HR PRN NAUSEA OR VOMITING #10 Ref 0 TAB Bryon Ty MD August 29, 2016 13:22 1000 MG PO BID With evening meal Blood Sugar Management #30 Ref 0 TAB Metoprolol Tartrate (Metoprolol Tartrate) 50 Mg Tab 50 MG PO DAILY #30 Ref 0 TAB Pantoprazole (Protonix) 40 Mg Tab 40 MG PO DAILY Reflux #30 Ref 0 TAB Discontinued Medications: Lansoprazole (Prevacid) 30 Mg Capdr 30 MG PO DAILY Ref 0 CAP Ondansetron (Zofran) 4 Mg Tab 4 MG PO Q6HR PRN NAUSEA OR VOMITING #10 Ref 0 TAB Bryon Ty MD August 29, 2016 13:22
[2016-08-30] MEDS ORDERED: PHARMACY ORDERED LAB ONE (16:45)
== END 2016-08-29 16:43 | disposition home or self-care (01) | DRG 872 ==
LOC: NEPD 16:20 → NEDA 18:50 → N07B 21:59
PROVIDERS: ADMIT Hospitalist; ATTEND Hospitalist
DX: A41.9 Sepsis, unspecified organism (principal); N17.9 Acute kidney failure, unspecified; E11.649 Type 2 diabetes mellitus with hypoglycemia without coma; N39.0 Urinary tract infection, site not specified; I16.0 Hypertensive urgency; I10 Essential (primary) hypertension; F41.9 Anxiety disorder, unspecified; E78.5 Hyperlipidemia, unspecified; I25.10 Atherosclerotic heart disease of native coronary artery without angina pectoris; Z95.1 Presence of aortocoronary bypass graft; I25.2 Old myocardial infarction; Z79.4 Long term (current) use of insulin; Z79.84 Long term (current) use of oral hypoglycemic drugs
CPT/HCPCS: 71010; 80048; 80053; 81001; 82550; 82948; 83605; 83690; 84484; 85025; 85027; 87040; 87086; 87493; 87506; 93005; 96365; J1650; J1815; J2405; J2543; J3370; J7030; J7050

== ENCOUNTER 2017-11-07 20:46 | Inpatient (IN) ==
[2017-11-07] MEDS ORDERED: Acetaminophen 325 MG Tablet PO ONE (21:58)
--- NOTE | 2017-11-07 22:02 | ED ---
HPI General Chief complaint: Extremity Problem,Nontraumatic Stated complaint: Leg spasms/chills Time Seen by Provider: 11/07/17 21:58 Source: patient and family Mode of arrival: ambulatory Limitations: no limitations History of Present Illness HPI narrative: 77-year-old female patient with history of cardiac disease, hypertension, diabetes, high cholesterol, presents to the ER today because she has had several days of not feeling well, chills, fevers, had a syncopal episode today according to her daughter. She has been nauseous but denies any vomiting, abdominal pains, chest pains, coughing, shortness of breath, or other symptoms. Related Data Home Medications Medication Instructions Recorded Confirmed Lantus Solostar U-100 Insulin 11/07/17 glipizide 11/07/17 lisinopril 11/07/17 pantoprazole 40 mg PO DAILY 11/07/17 11/07/17 simvastatin 11/07/17 Allergies Allergy/AdvReac Type Severity Reaction Status Date / Time No Known Allergies Allergy Verified 11/07/17 21:48 Review of Systems Except as stated in HPI: all other systems reviewed are negative PMFSH History History Provided By: Patient Medical History Medical History Diabetes (Acute) Hypercholesteremia (Acute) Hypertension (Acute) Myocardial infarct (Acute) Surgical History Surgical History Hx of CABG (Acute) Hx of heart artery stent (Acute) Social History Social History Second Hand Smoke Exposure: No Smoking Status: Never smoker How Often Do You Have a Drink Containing Alcohol: Never Recent Travel in [place] within the Last 8 Weeks: No Recent Out of Country Travel within the Last 8 Weeks: No Exam Narrative Exam Narrative: GENERAL: Well-developed elderly female patient currently in mild distress. Awake and oriented 3. SKIN: Focused skin assessment warm/dry. HEAD: Atraumatic. Normocephalic. EYES: Pupils equal and round. No scleral icterus. No injection or drainage. ENT: No nasal bleeding or discharge. Mucous membranes pink and moist. NECK: Trachea midline. No JVD. CARDIOVASCULAR: Regular rate and rhythm. No murmur appreciated. RESPIRATORY: No accessory muscle use. Clear to auscultation. Breath sounds equal bilaterally. GASTROINTESTINAL: Abdomen soft, non-tender, nondistended. Hepatic and splenic margins not palpable. MUSCULOSKELETAL: No obvious deformities. No clubbing. No cyanosis. No edema. NEUROLOGICAL: Awake and alert. No obvious cranial nerve deficits. Motor grossly within normal limits. Normal speech. PSYCHIATRIC: Appropriate mood and affect; insight and judgment normal. Course Hospital Course: Lab work shows significant leukocytosis, patient is febrile, lactate is above 2 , there is concern of sepsis in this case. Chest x-ray, urine was fairly unremarkable. Abdomen is fairly benign. Patient at this point is admitted to medical service for sepsis. Initial Documented Vital Signs Temperature 102.5 F H 11/07/17 21:42 Pulse Rate 111 H 11/07/17 21:42 Respiratory Rate 20 11/07/17 21:42 Blood Pressure 183/73 H 11/07/17 21:42 Pulse Oximetry 94 L 11/07/17 21:42 Last Documented Vital Signs Temperature 100.5 F H 11/07/17 23:30 Pulse Rate 100 H 11/08/17 01:04 Respiratory Rate 20 11/08/17 01:04 Blood Pressure 146/65 H 11/08/17 01:04 Pulse Oximetry 95 11/08/17 01:04 Medical Decision Making Differential Diagnosis Differential Diagnosis: Sepsis versus pneumonia versus UTI versus dehydration Lab Data Result diagrams: 11/07/17 22:00 11/07/17 22:00 Lab Results 11/07/17 11/07/17 11/07/17 Range/Units 22:00 22:00 22:05 WBC 15.3 H (4.0-11.0) th/mm3 RBC 4.65 (4.00-5.30) mil/mm3 Hgb 12.5 (11.6-15.3) gm/dL Hct 38.1 (35.0-46.0) % MCV 82.1 (80.0-100.0) fL MCH 26.8 L (27.0-34.0) pg MCHC 32.7 (32.0-36.0) % RDW 13.6 (11.6-17.2) % Plt Count 316 (150-450) th/mm3 MPV 8.6 (7.0-11.0) fL Neut % (Auto) 85.9 H (16.0-70.0) % Lymph % (Auto) 5.8 L (9.0-44.0) % [place] % (Auto) 7.5 (0.0-8.0) % Eos % (Auto) 0.6 (0.0-4.0) % Baso % (Auto) 0.2 (0.0-2.0) % Neut # (Auto) 13.2 H (1.8-7.7) th/mm3 Lymph # (Auto) 0.9 L (1.0-4.8) th/mm3 [place] # (Auto) 1.2 H (0.0-0.9) th/mm3 Eos # (Auto) 0.1 (0.0-0.4) th/mm3 Baso # (Auto) 0.0 (0.0-0.2) th/mm3 WBC Differential . Differential Comment Auto diff final Sodium 136 (136-145) meq/L Potassium 4.7 (3.5-5.1) meq/L Chloride 105 (98-107) meq/L Carbon Dioxide 18.7 L (21.0-32.0) meq/L Anion Gap 12 (5-15) meq/L BUN 20 H (7-18) mg/dL Creatinine 1.00 (0.50-1.00) mg/dL Estimated GFR 54 L (>89) mL/min Random Glucose 234 H (74-106) mg/dL Lactic Acid 2.2 H (0.4-2.0) mmol/L Calcium 10.4 H (8.5-10.1) mg/dL Total Bilirubin 0.3 (0.2-1.0) mg/dL AST 17 (15-37) U/L ALT 17 (10-53) U/L Alkaline Phosphatase 143 H (45-117) U/L Troponin I Less than 0.02 L (0.02-0.05) ng/mL Total Protein 8.2 (6.4-8.2) g/dL Albumin 3.8 (3.4-5.0) g/dL Urine Color (Yellw/Straw) Urine Clarity (Clear) Urine pH (5.0-8.5) Ur Specific [place] (1.002-1.035) Urine Protein (Neg-Trace) mg/dL Urine Glucose (UA) (Negative) mg/dL Urine Ketones (Negative) mg/dL Urine Occult Blood (Negative) Urine Nitrate (Negative) Urine Bilirubin (Negative) Urine Urobilinogen (Less than 2) mg/dL Ur Leukocyte Esterase (Negative) Urine RBC (0-3) /hpf Urine WBC (0-5) /hpf Ur Squamous Epith Cells (0-5) /hpf Amorphous Sediment (None) /hpf Urine Bacteria (None) /hpf Micro UA Comment Urine Culture Comments 11/08/17 11/08/17 Range/Units 00:59 01:05 WBC (4.0-11.0) th/mm3 RBC (4.00-5.30) mil/mm3 Hgb (11.6-15.3) gm/dL Hct (35.0-46.0) % MCV (80.0-100.0) fL MCH (27.0-34.0) pg MCHC (32.0-36.0) % RDW (11.6-17.2) % Plt Count (150-450) th/mm3 MPV (7.0-11.0) fL Neut % (Auto) (16.0-70.0) % Lymph % (Auto) (9.0-44.0) % [place] % (Auto) (0.0-8.0) % Eos % (Auto) (0.0-4.0) % Baso % (Auto) (0.0-2.0) % Neut # (Auto) (1.8-7.7) th/mm3 Lymph # (Auto) (1.0-4.8) th/mm3 [place] # (Auto) (0.0-0.9) th/mm3 Eos # (Auto) (0.0-0.4) th/mm3 Baso # (Auto) (0.0-0.2) th/mm3 WBC Differential Differential Comment Sodium (136-145) meq/L Potassium (3.5-5.1) meq/L Chloride (98-107) meq/L Carbon Dioxide (21.0-32.0) meq/L Anion Gap (5-15) meq/L BUN (7-18) mg/dL Creatinine (0.50-1.00) mg/dL Estimated GFR (>89) mL/min Random Glucose (74-106) mg/dL Lactic Acid 2.9 H (0.4-2.0) mmol/L Calcium (8.5-10.1) mg/dL Total Bilirubin (0.2-1.0) mg/dL AST (15-37) U/L ALT (10-53) U/L Alkaline Phosphatase (45-117) U/L Troponin I (0.02-0.05) ng/mL Total Protein (6.4-8.2) g/dL Albumin (3.4-5.0) g/dL Urine Color Yellow (Yellw/Straw) Urine Clarity Hazy H (Clear) Urine pH 5.0 (5.0-8.5) Ur Specific [place] 1.015 (1.002-1.035) Urine Protein Negative (Neg-Trace) mg/dL Urine Glucose (UA) 50 (Negative) mg/dL Urine Ketones Negative (Negative) mg/dL Urine Occult Blood Small H (Negative) Urine Nitrate Negative (Negative) Urine Bilirubin Negative (Negative) Urine Urobilinogen Less than 2 (Less than 2) mg/dL Ur Leukocyte Esterase Negative (Negative) Urine RBC 2 (0-3) /hpf Urine WBC 3 (0-5) /hpf Ur Squamous Epith Cells 1 (0-5) /hpf Amorphous Sediment Rare H (None) /hpf Urine Bacteria Rare H (None) /hpf Micro UA Comment Culture not ind Urine Culture Comments Culture not ind Imaging Data Radiologist's impression: Chest X-Ray 11/07/17 21:58 CONCLUSION: No infiltrates seen. Discharge Plan Discharge Details Anticipated Discharge Date: 11/08/17 Physicians Team ED Provider: Inez Fragoso Primary Care Provider: García Jordan Rxs /Orders / Referrals /Forms Prescriptions: No Action pantoprazole 40 mg Tablet,Delayed Release (Dr/Ec) 40 mg PO DAILY RF: 0 Lantus Solostar U-100 Insulin RF: 0 glipizide RF: 0 lisinopril RF: 0 simvastatin RF: 0 Discharge Interventions Interventions: Vital Signs Last Done: 11/08/17 01:04 Status ED Status: With Doctor
--- NOTE | 2017-11-07 22:23 | XR ---
EXAM DATE: 11/07/2017 10:11 PM EDT AGE/SEX: 77 years / Female INDICATIONS: Fever CLINICAL DATA: This is the patient's initial encounter. Patient reports that signs and symptoms have been present for 1 day and indicates a pain score of 0/10. MEDICAL/SURGICAL HISTORY: Cardiovascular disease. CABG. COMPARISON: No prior exams available for comparison. FINDINGS: Mild crowding of the bronchopulmonary markings without focal infiltrates and without focal consolidat ion. Evidence of prior median sternotomy and CABG. Both hemidiaphragms well delineated. CONCLUSION: No infiltrates seen. Electronically signed by: Gallo Ramos MD 11/07/2017 10:22 PM EDT
[2017-11-07 22:49] LABS: Baso % (Auto) 0.2 % (0.0-2.0); Eos # (Auto) 0.1 th/mm3 (0.0-0.4); Eos % (Auto) 0.6 % (0.0-4.0); Hematocrit 38.1 % (35.0-46.0); Hemoglobin 12.5 gm/dL (11.6-15.3); Lymph # (Auto) 0.9 th/mm3 (1.0-4.8); Lymph % (Auto) 5.8 % (9.0-44.0); Mean Corpuscular HGB Conc 32.7 % (32.0-36.0); Mean Corpuscular Hemoglobin 26.8 pg (27.0-34.0); Mean Corpuscular Volume 82.1 fL (80.0-100.0); Mean Platelet Volume 8.6 fL (7.0-11.0); Mono # (Auto) 1.2 th/mm3 (0.0-0.9); Mono % (Auto) 7.5 % (0.0-8.0); Neut # (Auto) 13.2 th/mm3 (1.8-7.7); Neut % (Auto) 85.9 % (16.0-70.0); Platelet Count 316 th/mm3 (150-450); Red Blood Count 4.65 mil/mm3 (4.00-5.30); Red Cell Distribution Width 13.6 % (11.6-17.2); White Blood Count 15.3 th/mm3 (4.0-11.0)
[2017-11-07 23:04] LABS: Alanine Aminotransferase 17 U/L (10-53)
[2017-11-07 23:07] LABS: Albumin 3.8 g/dL (3.4-5.0); Alkaline Phosphatase 143 U/L (45-117); Anion Gap 12 meq/L (5-15); Aspartate Aminotransferase 17 U/L (15-37); Blood Urea Nitrogen 20 mg/dL (7-18); Calcium 10.4 mg/dL (8.5-10.1); Carbon Dioxide 18.7 meq/L (21.0-32.0); Chloride 105 meq/L (98-107); Glomerular Filtration Rate 54 mL/min (>89); Glucose,Random 234 mg/dL (74-106); Potassium 4.7 meq/L (3.5-5.1); Sodium 136 meq/L (136-145); Total Protein 8.2 g/dL (6.4-8.2)
[2017-11-08 01:25] LABS: Amorphous Sediment,Urine Rare /hpf; Bacteria,Urine Rare /hpf; Bilirubin,Urine Negative (Negative); Clarity,Urine Hazy (Clear); Color,Urine Yellow (Yellw/Straw); Glucose,Urine (UA) 50 mg/dL (Negative); Leukocyte Esterase,Urine Negative (Negative); Nitrite,Urine Negative (Negative); Specific Gravity,Urine 1.015 (1.002-1.035); Squamous Epithelial Cell,Urine 1 /hpf (0-5)
[2017-11-08] MEDS ORDERED: Piperacil/Tazo 3.375 GM Premix 50 ML IV.SIG ONE (02:05)
[2017-11-08] MEDS ORDERED: Dextrose 50% in Water 50 ML Vial IV.PUSH PRN (02:22)
[2017-11-08] MEDS ORDERED: Temazepam 15 MG Capsule PO PRN (02:24)
[2017-11-08] MEDS ORDERED: Acetaminophen 325 MG Tablet PO PRN (02:24)
[2017-11-08] MEDS ORDERED: Bisacodyl 10 MG Supp RECTAL PRN (02:24)
[2017-11-08] MEDS ORDERED: Vancomycin Consult Pharmacy 1 EACH OTHER SCH (03:00)
--- NOTE | 2017-11-08 03:27 | P.HPIM ---
History of Present Illness Primary Care Physician: García Jordan MD History of Present Illness: This is a 77-year-old [place]-speaking female with a PMH of HTN, Hyperlipidemia and DM who is brought to the ER by family secondary to fever and syncopal episode. History obtained by me directly from patient in [place], reports productive cough with white colored sputum x2-3 days, no chest pain or SOB. Denies abdominal pain, nausea, vomiting or diarrhea. No sick contacts or recent travel. Daughter notes syncopal episode today, no previous h/o same. On arrival, BP 192/80, HR 99, O2 sat 95% on RA, Temp 102.6. Flu negative. WBC 15.3. Chemistry essentially unremarkable. Lactic Acid 2.2, repeat 2.9. UA negative for UTI. CXR with no acute findings. S/p Blood Cultures and Zosyn in ER. - Diagnosis (1) Sepsis (2) Syncope (3) DM (diabetes mellitus) Inpatient Certification: I certify that the inpatient services were ordered in accordance with Medicare regulations governing the order. This includes certification that hospital inpatient services are reasonable and necessary and in the case of services not specified as inpatient-only under 42 CFR 419.22(n), that they are appropriately provided as inpatient services in accordance to with the 2-midnight benchmark under 43 CFR 412.3(e) Estimated Total Length of Stay (Days): 2 Plans for Post Hospital Care: Not yet determined Review of Systems All other systems reviewed negative except as stated in HPI PMFSH - History History Provided By: Patient - Medical History Medical History: Medical History (Last Reviewed 11/07/17 @ 22:02 by Inez Fragoso MD) Diabetes Hypercholesteremia Hypertension Myocardial infarct - Surgical History Surgical History: Surgical History (Last Reviewed 11/07/17 @ 22:02 by Inez Fragoso MD) Hx of CABG Hx of heart artery stent - Tobacco History Second Hand Smoke Exposure: No Tobacco Use In Past 30 Days: No Smoking Status: Never smoker - Alcohol History How Often Do You Have a Drink Containing Alcohol: Never - Travel History Recent Travel in the [place] Within the Last 8 Weeks: No Recent Travel Out of the Country Within the Last 8 Weeks: No - Immunization History Tetanus Immunization: Unsure Hx Influenza Vaccine This Season: Yes Medications and Allergies Active Medications: Active Medications Acetaminophen (Tylenol) 650 mg PO Q4H PRN PRN Reason: Temp > 100.4 Al Hydroxide/Mg Hydroxide (Milk Of Magnesia Liq) 30 ml PO Q12H PRN PRN Reason: Mild Constipation Bisacodyl (Dulcolax Supp) 10 mg RECTAL DAILY PRN PRN Reason: SEVERE CONSITIPATION Dextrose (D50w Vial) 50 ml IV.PUSH UNSCH PRN PRN Reason: PER HYPOGLYCEMIA PROTOCOL Glucagon (Glucagon Inj) 1 mg OTHER PRN PRN PRN Reason: for Hypoglycemia Protocol Pharmacy Profile Note (Vancomycin Consult Pharmacy) 0 mls @ 0 mls/hr OTHER UNSCH MJ Piperacillin/Tazobactam/Dextrose (Zosyn 4.5 Gm Premix) 4.5 gm in 100 mls @ 200 mls/hr IV.SIG Q6H MJ Sodium Chloride (Ns Inj) 1,000 mls @ 100 mls/hr IV.CONT .Q10H MJ Vancomycin/Sodium Chloride (Vancomycin Inj) 1 gm in 200 mls @ 200 mls/hr IV.SIG DAILY@0400 MJ Stop: 11/08/17 12:00 Insulin Aspart (Novolog Insulin Correctional Sugar Inj) 0 unit SQ ACHS MJ; Protocol Lactulose (Lactulose Liq) 30 ml PO DAILY PRN PRN Reason: SEVERE CONSITIPATION Ondansetron HCl (Zofran Odt) 4 mg PO Q6H PRN PRN Reason: NAUSEA OR VOMITING Senna/Docusate Sodium (Gayatri-Colace) 1 tab PO BID MJ Sennosides (Senokot) 17.2 mg PO Q12H PRN PRN Reason: Moderate Constipation Temazepam (Restoril) 15 mg PO HS PRN PRN Reason: INSOMNIA Allergies Allergy/AdvReac Type Severity Reaction Status Date / Time No Known Allergies Allergy Verified 11/07/17 21:48 Home Medications Medication Instructions Recorded Confirmed Type Lantus Solostar U-100 Insulin 11/07/17 History glipizide 11/07/17 History lisinopril 11/07/17 History pantoprazole 40 mg PO DAILY 11/07/17 11/07/17 History simvastatin 11/07/17 History Exam Vital signs: Vital Signs 11/07/17 21:42 11/07/17 22:00 11/07/17 22:30 Temperature 102.5 F H 102.6 F H Pulse Rate 111 H 99 H Respiratory Rate 20 22 Blood Pressure 183/73 H 192/80 H Pulse Oximetry 94 L 95 95 11/07/17 23:30 11/08/17 01:04 Temperature 100.5 F H Pulse Rate 96 H 100 H Respiratory Rate 20 20 Blood Pressure 156/70 H 146/65 H Pulse Oximetry 95 95 Intake & Output 11/07/17 11/07/17 11/08/17 06:59 18:59 06:59 Weight 55.792 kg Narrative: PE: GENERAL: Very pleasant elderly female in no acute distress. Family at bedside. HEENT: PERRALICE, EOMI. No scleral icterus or conjunctival pallor. No lid lag or facial droop. CARDIOVASCULAR: Regular rate and rhythm. No obvious murmurs to auscultation. No chest tenderness to palpation. RESPIRATORY: No obvious rhonchi or wheezing. Clear to auscultation. Breath sounds equal bilaterally. GASTROINTESTINAL: Abdomen soft, non-tender, nondistended. BS normal. MUSCULOSKELETAL: Extremities without clubbing, cyanosis, or edema. No obvious deformities. NEUROLOGICAL: Awake, alert and oriented x4. No focal neurologic deficits. Moving both upper and lower extremities spontaneously. Results - Labs CBC & Chem 7: 11/07/17 22:00 11/07/17 22:00 Labs: Short CBC 11/07/17 Range/Units 22:00 WBC 15.3 H (4.0-11.0) th/mm3 Hgb 12.5 (11.6-15.3) gm/dL Hct 38.1 (35.0-46.0) % Plt Count 316 (150-450) th/mm3 [facility] 11/07/17 22:00 Sodium 136 Potassium 4.7 Chloride 105 Carbon Dioxide 18.7 L BUN 20 H Creatinine 1.00 Calcium 10.4 H Cardiac Enzymes 11/07/17 Range/Units 22:00 Troponin I Less than 0.02 L (0.02-0.05) ng/mL Liver Function 11/07/17 Range/Units 22:00 Total Bilirubin 0.3 (0.2-1.0) mg/dL AST 17 (15-37) U/L ALT 17 (10-53) U/L Alkaline Phosphatase 143 H (45-117) U/L Albumin 3.8 (3.4-5.0) g/dL Urine 11/08/17 Range/Units 01:05 Urine Color Yellow (Yellw/Straw) Urine Clarity Hazy H (Clear) Urine pH 5.0 (5.0-8.5) Ur Specific [place] 1.015 (1.002-1.035) Urine Protein Negative (Neg-Trace) mg/dL Urine Glucose (UA) 50 (Negative) mg/dL - Imaging Impressions Chest X-Ray 11/07/17 21:58 CONCLUSION: No infiltrates seen. Caprini VTE Risk Assessment Caprini VTE Risk Assessment: No/Low Risk (score <= 1) Caprini Risk Assessment Model: Point Value = 1 Point Value = 2 Point Value = 3 Point Value = 5 Age 41-60 Minor surgery BMI > 25 kg/m2 Swollen legs Varicose veins or History of unexplained or recurrent spontaneous Oral contraceptives or hormone replacement Sepsis (< 1 month) Serious lung disease, including pneumonia (< 1 month) Abnormal pulmonary function Acute myocardial infarction Congestive heart failure (< 1 month) History of inflammatory bowel disease Medical patient at bed rest Age 61-74 Arthroscopic surgery Major open surgery (> 45 min) Laparoscopic surgery (> 45 min) Malignancy Confined to bed (> 72 hours) Immobilizing plaster cast Central venous access Age >= 75 History of VTE Family history of VTE Factor V Leiden Prothrombin [id number] Lupus anticoagulant Anticardiolipin antibodies Elevated serum homocysteine Heparin-induced thrombocytopenia Other congenital or acquired thrombophilia Stroke (< 1 month) Elective arthroplasty Hip, pelvis, or leg fracture Acute spinal cord injury (< 1 month) Prophylaxis Regimen: Total Risk Factor Score Risk Level Prophylaxis Regimen 0-1 Low Early ambulation 2 Moderate Order ONE of the following: *Sequential Compression Device (SCD) *Heparin 5000 units SQ BID 3-4 Higher Order ONE of the following medications: *Heparin 5000 units SQ TID *Enoxaparin/Lovenox 40 mg SQ daily (WT < 150 kg, CrCl > 30 mL/min) *Enoxaparin/Lovenox 30 mg SQ daily (WT < 150 kg, CrCl > 10-29 mL/min) *Enoxaparin/Lovenox 30 mg SQ BID (WT < 150 kg, CrCl > 30 mL/min) AND/OR *Sequential Compression Device (SCD) 5 or more Highest Order ONE of the following medications: *Heparin 5000 units SQ TID (Preferred with Epidurals) *Enoxaparin/Lovenox 40 mg SQ daily (WT < 150 kg, CrCl > 30 mL/min) *Enoxaparin/Lovenox 30 mg SQ daily (WT < 150 kg, CrCl > 10-29 mL/min) *Enoxaparin/Lovenox 30 mg SQ BID (WT < 150 kg, CrCl > 30 mL/min) AND *Sequential Compression Device (SCD) Assessment and Plan - Assessment (1) Sepsis Code(s): A41.9 - Sepsis, unspecified organism Status: Acute (2) Syncope Code(s): R55 - Syncope and collapse Status: Acute (3) DM (diabetes mellitus) Code(s): E11.9 - Type 2 diabetes mellitus without complications Status: Acute - Plan A/P: 1. Sepsis: Temp 102.6, HR 99, WBC 15, Source-Unknown, CXR w/ no acute findings , images reviewed, U/a negative for UTI, Flu negative. Reports productive cough w/ white-colored sputum, no other symptoms. Continue w/ IV Abx, follow up cultures. 2. Syncope: likely due to sepsis/dehydration, initial trop negative, will check serial cardiac enzymes to eval for underlying ischemia. Check Echo to eval for valvular abnormality/cardiomyopathy. Telemetry. 3. DM: Sliding scale w/ Accu-Cheks, hold Glipizide for now in light of decreased PO intake. 4. DVT Prophylaxis: SCD/Teds 5. Social work for d/c planning as needed. 6. Case discussed w/ ER physician at length, labs/records/imaging reviewed by me.
[2017-11-08] MEDS: Sod Chloride 0.9% Inj 1,000 ML IV.CONT SCH ×2 (04:00→16:36)
[2017-11-08] MEDS ORDERED: Vancomycin Inj 1 GM/200 ML PIGGYBACK IV.SIG SCH (04:00)
[2017-11-08] MEDS: Piperacil/Tazo 4.5 GM Premix 4.5 GM/100 ML BAG IV.SIG SCH ×3 (08:49→22:38)
[2017-11-08] MEDS: Insulin NovoLOG Aspart Correctional Sugar Inj SQ SCH ×4 (08:49→22:40)
[2017-11-08] MEDS: Senna/Docusate Sodium 8.6/50 MG Tablet PO SCH ×2 (08:49→22:40)
--- NOTE | 2017-11-08 10:18 | ECG ---
Date Performed: 11/07/2017 Time Performed: 22:22:47 PTAGE: 77 years EKG: SINUS TACHYCARDIA WITH FREQUENT SUPRAVENTRICULAR PREMATURE COMPLEXES LEFT VENTRICULAR HYPER TROPHY AND ST-T CHANGE ABNORMAL ECG INTERPRETATION BASED ON A DEFAULT AGE OF 40 YEARS PREVIOUS TRACING : 08/26/2016 16.47 Since the previous tracing, no significant change not ed DOCTOR: Evi Martinez Interpretating Date/Time 11/08/2017 10:16:17
[2017-11-08 12:20] LABS: Baso # (Auto) 0.1 th/mm3 (0.0-0.2); Baso % (Auto) 0.4 % (0.0-2.0); Eos # (Auto) 0.1 th/mm3 (0.0-0.4); Eos % (Auto) 0.8 % (0.0-4.0); Hematocrit 30.7 % (35.0-46.0); Hemoglobin 10.2 gm/dL (11.6-15.3); Lymph # (Auto) 1.4 th/mm3 (1.0-4.8); Lymph % (Auto) 8.6 % (9.0-44.0); Mean Corpuscular HGB Conc 33.2 % (32.0-36.0); Mean Corpuscular Hemoglobin 27.3 pg (27.0-34.0); Mean Corpuscular Volume 82.2 fL (80.0-100.0); Mono # (Auto) 1.3 th/mm3 (0.0-0.9); Mono % (Auto) 8.3 % (0.0-8.0); Neut # (Auto) 13.1 th/mm3 (1.8-7.7); Neut % (Auto) 81.9 % (16.0-70.0); Platelet Count 245 th/mm3 (150-450); Red Blood Count 3.74 mil/mm3 (4.00-5.30)
--- NOTE | 2017-11-08 12:29 | P.PNIM ---
Subjective Interval history: Patient states that she is not short of breath. She has no abdominal pain except for some mild dysuria. She has not had any diarrhea. She reports some dry cough and had some fevers and chills prior to coming to the hospital. She is feeling better after admission today. She is having better appetite. Physical Exam Vital signs: Vital Signs 11/07/17 21:42 11/07/17 22:00 11/07/17 22:30 Temperature 102.5 F H 102.6 F H Pulse Rate 111 H 99 H Respiratory Rate 20 22 Blood Pressure 183/73 H 192/80 H Pulse Oximetry 94 L 95 95 11/07/17 23:30 11/08/17 01:04 11/08/17 05:30 Temperature 100.5 F H 98.8 F Pulse Rate 96 H 100 H 76 Respiratory Rate 20 20 16 Blood Pressure 156/70 H 146/65 H 152/67 H Pulse Oximetry 95 95 96 11/08/17 08:00 Temperature 98.2 F Pulse Rate 67 Respiratory Rate 18 Blood Pressure 130/60 Pulse Oximetry 95 Intake & Output 11/07/17 11/08/17 11/08/17 18:59 06:59 18:59 Weight 51.9 kg Other: Weight On Admission 51.9 kg Narrative: GENERAL: This is a well-nourished, well-developed patient, in no apparent distress. CARDIOVASCULAR: Regular rate and rhythm without murmurs, gallops, or rubs. RESPIRATORY: Clear to auscultation. Breath sounds equal bilaterally. No wheezes , rales, or rhonchi. GASTROINTESTINAL: Abdomen soft, non-tender, nondistended. Normal active bowel sounds MUSCULOSKELETAL: Extremities without clubbing, cyanosis, or edema. NEURO: Alert & Oriented x4 to person, place, time, situation. Moves all ext x4 Results - Labs CBC & Chem 7: 11/07/17 22:00 11/07/17 22:00 Laboratory Results - last 24 hr 11/07/17 11/07/17 11/07/17 22:00 22:00 22:05 WBC 15.3 H RBC 4.65 Hgb 12.5 Hct 38.1 MCV 82.1 MCH 26.8 L MCHC 32.7 RDW 13.6 Plt Count 316 MPV 8.6 Neut % (Auto) 85.9 H Lymph % (Auto) 5.8 L [place] % (Auto) 7.5 Eos % (Auto) 0.6 Baso % (Auto) 0.2 Neut # (Auto) 13.2 H Lymph # (Auto) 0.9 L [place] # (Auto) 1.2 H Eos # (Auto) 0.1 Baso # (Auto) 0.0 WBC Differential . Differential Comment Auto diff final Sodium 136 Potassium 4.7 Chloride 105 Carbon Dioxide 18.7 L Anion Gap 12 BUN 20 H Creatinine 1.00 Estimated GFR 54 L POC Glucose Random Glucose 234 H Lactic Acid 2.2 H Calcium 10.4 H Total Bilirubin 0.3 AST 17 ALT 17 Alkaline Phosphatase 143 H Troponin I Less than 0.02 L Total Protein 8.2 Albumin 3.8 Urine Color Urine Clarity Urine pH Ur Specific [place] Urine Protein Urine Glucose (UA) Urine Ketones Urine Occult Blood Urine Nitrate Urine Bilirubin Urine Urobilinogen Ur Leukocyte Esterase Urine RBC Urine WBC Ur Squamous Epith Cells Amorphous Sediment Urine Bacteria Micro UA Comment Urine Culture Comments 11/08/17 11/08/17 11/08/17 00:59 01:05 08:02 WBC RBC Hgb Hct MCV MCH MCHC RDW Plt Count MPV Neut % (Auto) Lymph % (Auto) [place] % (Auto) Eos % (Auto) Baso % (Auto) Neut # (Auto) Lymph # (Auto) [place] # (Auto) Eos # (Auto) Baso # (Auto) WBC Differential Differential Comment Sodium Potassium Chloride Carbon Dioxide Anion Gap BUN Creatinine Estimated GFR POC Glucose 287 H Random Glucose Lactic Acid 2.9 H Calcium Total Bilirubin AST ALT Alkaline Phosphatase Troponin I Total Protein Albumin Urine Color Yellow Urine Clarity Hazy H Urine pH 5.0 Ur Specific [place] 1.015 Urine Protein Negative Urine Glucose (UA) 50 Urine Ketones Negative Urine Occult Blood Small H Urine Nitrate Negative Urine Bilirubin Negative Urine Urobilinogen Less than 2 Ur Leukocyte Esterase Negative Urine RBC 2 Urine WBC 3 Ur Squamous Epith Cells 1 Amorphous Sediment Rare H Urine Bacteria Rare H Micro UA Comment Culture not ind Urine Culture Comments Culture not ind Microbiology 11/07/17 22:25 Blood - Peripheral Aerobic Blood Culture - Preliminary No growth in 1 day 11/07/17 22:25 Blood - Peripheral Anaerobic Blood Culture - Preliminary No growth in 1 day 11/07/17 22:05 Blood - Peripheral Aerobic Blood Culture - Preliminary No growth in 1 day 11/07/17 22:05 Blood - Peripheral Anaerobic Blood Culture - Preliminary No growth in 1 day 11/08/17 01:02 Nasal Wash Influenza Types A,B Antigen - Final Negative for FLU A and B antigen Infection due to influenza A or B cannot be ruled out since the antigen present in the sample may be below the detection limit of the test. - Imaging Impressions Chest X-Ray 11/07/17 21:58 CONCLUSION: No infiltrates seen. Assessment and Plan - Assessment (1) Sepsis Code(s): A41.9 - Sepsis, unspecified organism Status: Acute (2) Syncope Code(s): R55 - Syncope and collapse Status: Acute (3) DM (diabetes mellitus) Code(s): E11.9 - Type 2 diabetes mellitus without complications Status: Acute - Plan 1. Severe sepsis present on admission with fever and tachycardia and elevated lactic acid: Temp 102.6, HR 99, WBC 15, Source-Unknown and may be viral in nature, CXR w/ no acute findings, images reviewed, U/a negative for UTI, Flu negative. Reports productive cough w/ white-colored sputum, no other symptoms. Continue w/ IV Abx Rocephin and Zithromax, follow up blood cultures. 2. Syncope: likely due to sepsis/dehydration, initial trop negative, serial cardiac enzymes are negative. Check Echo to eval for valvular abnormality/ cardiomyopathy. Telemetry has shown patient has been normal sinus rhythm. 3. DM type 2 diabetes: Sliding scale w/ Accu-Cheks, restart home glipizide for now as patient's appetite has not improved after admission. Continue to monitor blood sugar. 4. History of chronic hypertension essentiallisinopril on hold for now due to early sepsis, IV Vasotec as needed 4. DVT Prophylaxis: SCD/Teds Discussed with family at bedside. (3) DM (diabetes mellitus) Qualifiers: Diabetes mellitus type: type 2 Diabetes mellitus pediatric associate insulin use: without m[facility]p use Diabetes mellitus complication status: without complication Qualified Code(s): E11.9 - Type 2 diabetes mellitus without complications
[2017-11-08] MEDS: glipiZIDE 5 MG Tablet PO SCH (14:29)
--- NOTE | 2017-11-08 18:50 | ECHRPT ---
Indication: CARDIOMYOPATHY CONCLUSIONS Technically difficult study The left ventricular systolic function is normal with an estimated ejection fraction in the range of 55-60%. Trace mitral valve regurgitation. There is mild tricuspid valve regurgitation. BP: / HR: Rhythm: Sinus MEASUREMENTS (Male / Female) Normal Values Technical Quality:Technically difficult study 2D ECHO LV Diastolic Diameter PLAX 4.7 cm 4.2 - 5.9 / 3.9 - 5.3 cm LV Systolic Diameter PLAX 3.3 cm IVS Diastolic Thickness 0.9 cm 0.6 - 1.0 / 0.6 - 0.9 cm LVPW Diastolic Thickness 0.9 cm 0.6 - 1.0 / 0.6 - 0.9 cm LV Relative Wall Thickness 0.4 RV Internal Dim ED PLAX 2.5 cm LVOT Diameter 2.1 cm Aortic Root Diameter 3.1 cm LA Systolic Diameter LX 3.0 cm 3.0 - 4.0 / 2.7 - 3.8 cm M-MODE AV Cusp Separation MM 1.9 cm DOPPLER AV Peak Velocity 141.0 cm/s AV Peak Gradient 8.0 mmHg AV Mean Gradient 4.0 mmHg AV Velocity Time Integral 25.6 cm LVOT Peak Velocity 84.2 cm/s LVOT Peak Gradient 2.8 mmHg LVOT Velocity Time Integral 15.5 cm AV Area Cont Eq vti 2.1 cm AV Area Cont Eq pk 2.1 cm Mitral E Point Velocity 84.9 cm/s LV E' Lateral Velocity 8.6 cm/s Mitral E to LV E' Lateral Ratio 9.9 LV E' Septal Velocity 5.5 cm/s Mitral E to LV E' Septal Ratio 15.5 TR Peak Velocity 258.0 cm/s TR Peak Gradient 26.6 mmHg Right Atrial Pressure 10.0 mmHg Pulmonary Artery Systolic Pressu 36.6 mmHg Right Ventricular Systolic Press 36.6 mmHg PV Peak Velocity 61.7 cm/s PV Peak Gradient 1.5 mmHg FINDINGS LEFT VENTRICLE Normal left ventricular size. Wall thickness is normal. The left ventricular systolic function is normal with an estimated ejection fraction in the range of 55-60%. RIGHT VENTRICLE Normal right ventricular size and systolic function. LEFT ATRIUM The left atrial size is normal. RIGHT ATRIUM The right atrial size is normal. ATRIAL SEPTUM No atrial level shunt is demonstrated by color flow Doppler interrogation. AORTA The aortic root and proximal ascending aorta are not well visualized. MITRAL VALVE Trace mitral valve regurgitation. Structurally normal mitral valve. No mitral valve stenosis. AORTIC VALVE Aortic valve sclerosis is present. No aortic valve regurgitation. TRICUSPID VALVE There is mild tricuspid valve regurgitation. The estimated pulmonary arterial pressure is 36.6 mmHg. PULMONARY VALVE No pulmonary valve regurgitation or stenosis. VESSELS The inferior vena cava is normal in size. PERICARDIUM No pericardial effusion. Vishal Millard DO (Electronically Signed) Final Date:08 November 2017 18:49
[2017-11-09] MEDS: Vancomycin Inj 1,000 MG in Sodium Chlor 0.9% Inj 250 ML IV.SIG SCH ×2 (00:01→17:55)
[2017-11-09] MEDS: Sod Chloride 0.9% Inj 1,000 ML IV.CONT SCH ×3 (04:06→20:22)
[2017-11-09] MEDS: Piperacil/Tazo 4.5 GM Premix 4.5 GM/100 ML BAG IV.SIG SCH ×4 (04:08→20:22)
[2017-11-09 07:18] LABS: Baso # (Auto) 0.1 th/mm3 (0.0-0.2); Baso % (Auto) 0.4 % (0.0-2.0); Eos # (Auto) 0.2 th/mm3 (0.0-0.4); Eos % (Auto) 2.1 % (0.0-4.0); Hematocrit 34.6 % (35.0-46.0); Hemoglobin 11.2 gm/dL (11.6-15.3); Mean Corpuscular HGB Conc 32.5 % (32.0-36.0); Mean Corpuscular Hemoglobin 26.9 pg (27.0-34.0); Mean Corpuscular Volume 82.9 fL (80.0-100.0); Mean Platelet Volume 8.5 fL (7.0-11.0); Mono % (Auto) 9.1 % (0.0-8.0); Neut # (Auto) 9.1 th/mm3 (1.8-7.7); Neut % (Auto) 79.4 % (16.0-70.0); Platelet Count 268 th/mm3 (150-450); Red Blood Count 4.17 mil/mm3 (4.00-5.30); White Blood Count 11.5 th/mm3 (4.0-11.0)
[2017-11-09 07:43] LABS: Alanine Aminotransferase 19 U/L (10-53); Alkaline Phosphatase 116 U/L (45-117); Anion Gap 10 meq/L (5-15); Aspartate Aminotransferase 15 U/L (15-37); Blood Urea Nitrogen 10 mg/dL (7-18); Calcium 9.2 mg/dL (8.5-10.1); Carbon Dioxide 22.7 meq/L (21.0-32.0); Chloride 109 meq/L (98-107); Glomerular Filtration Rate 67 mL/min (>89); Glucose,Random 167 mg/dL (74-106); Potassium 4.1 meq/L (3.5-5.1); Sodium 142 meq/L (136-145); Total Protein 7.1 g/dL (6.4-8.2)
--- NOTE | 2017-11-09 09:04 | P.PNIM ---
Subjective Interval history: Feeling okay. No significant coughing. No shortness of breath. No abdominal pain. No diarrhea. Physical Exam Vital signs: Vital Signs 11/08/17 09:00 11/08/17 12:00 11/08/17 16:00 Temperature 98.5 F Pulse Rate 62 62 67 Respiratory Rate 18 18 Blood Pressure 128/58 L 134/60 Pulse Oximetry 96 95 11/08/17 20:00 11/08/17 23:58 11/09/17 01:27 Temperature 98.5 F 98.3 F Pulse Rate 72 74 Respiratory Rate 16 16 Blood Pressure 165/73 H 182/68 H 168/60 H Pulse Oximetry 94 L 96 11/09/17 04:00 Temperature 98 F Pulse Rate 68 Respiratory Rate 16 Blood Pressure 186/79 H Pulse Oximetry 95 Intake & Output 11/08/17 11/09/17 11/09/17 18:59 06:59 18:59 Intake Total 2160 / 2160 1580 / 1580 Output Total 3000 / 3000 Balance 2160 / 2160 -1420 / -1420 Weight 50.3 kg Intake: IV 1200 / 1200 1100 / 1100 NS Inj 1,000 ML @ 100 mls/hr IV 1000 / 1000 1000 / 1000 .CONT .Q10H MJ Rx#:[id number] Zosyn 4.5 GM Premix 4.5 gm In 200 / 200 100 / 100 100 ml @ 200 mls/hr IV.SIG Q6H MJ Rx#:[id number] Oral 960 / 960 480 / 480 Output: Urine 3000 / 3000 Other: # Voids 2 # Bowel Movements 0 Narrative: GENERAL: This is a well-nourished, well-developed patient, in no apparent distress. CARDIOVASCULAR: Regular rate and rhythm without murmurs, gallops, or rubs. RESPIRATORY: Clear to auscultation. Breath sounds equal bilaterally. No wheezes , rales, or rhonchi. GASTROINTESTINAL: Abdomen soft, non-tender, nondistended. Normal active bowel sounds MUSCULOSKELETAL: Extremities without clubbing, cyanosis, or edema. NEURO: Alert & Oriented x4 to person, place, time, situation. Moves all ext x4 Results - Labs CBC & Chem 7: 11/09/17 04:42 11/09/17 04:42 Laboratory Results - last 24 hr 11/08/17 11/08/17 11/08/17 12:10 12:10 12:10 WBC 16.0 H RBC 3.74 L Hgb 10.2 L D Hct 30.7 L MCV 82.2 MCH 27.3 MCHC 33.2 RDW 14.0 Plt Count 245 MPV 8.0 Neut % (Auto) 81.9 H Lymph % (Auto) 8.6 L [place] % (Auto) 8.3 H Eos % (Auto) 0.8 Baso % (Auto) 0.4 Neut # (Auto) 13.1 H Lymph # (Auto) 1.4 [place] # (Auto) 1.3 H Eos # (Auto) 0.1 Baso # (Auto) 0.1 WBC Differential . Differential Comment Auto diff final Sodium Potassium Chloride Carbon Dioxide Anion Gap BUN Creatinine Estimated GFR POC Glucose Random Glucose Lactic Acid 2.1 H Calcium Total Bilirubin AST ALT Alkaline Phosphatase Troponin I Less than 0.02 L Total Protein Albumin 11/08/17 11/08/17 11/08/17 12:17 13:28 16:49 WBC RBC Hgb Hct MCV MCH MCHC RDW Plt Count MPV Neut % (Auto) Lymph % (Auto) [place] % (Auto) Eos % (Auto) Baso % (Auto) Neut # (Auto) Lymph # (Auto) [place] # (Auto) Eos # (Auto) Baso # (Auto) WBC Differential Differential Comment Sodium Potassium Chloride Carbon Dioxide Anion Gap BUN Creatinine Estimated GFR POC Glucose 241 H 218 H Random Glucose Lactic Acid Calcium Total Bilirubin AST ALT Alkaline Phosphatase Troponin I Less than 0.02 L Total Protein Albumin 11/08/17 11/09/17 11/09/17 20:35 04:42 04:42 WBC 11.5 H RBC 4.17 Hgb 11.2 L Hct 34.6 L MCV 82.9 MCH 26.9 L MCHC 32.5 RDW 14.0 Plt Count 268 MPV 8.5 Neut % (Auto) 79.4 H Lymph % (Auto) 9.0 [place] % (Auto) 9.1 H Eos % (Auto) 2.1 Baso % (Auto) 0.4 Neut # (Auto) 9.1 H Lymph # (Auto) 1.0 [place] # (Auto) 1.0 H Eos # (Auto) 0.2 Baso # (Auto) 0.1 WBC Differential . Differential Comment Auto diff final Sodium 142 Potassium 4.1 Chloride 109 H Carbon Dioxide 22.7 Anion Gap 10 BUN 10 Creatinine 0.83 Estimated GFR 67 L POC Glucose 208 H Random Glucose 167 H Lactic Acid Calcium 9.2 D Total Bilirubin 0.5 AST 15 ALT 19 Alkaline Phosphatase 116 Troponin I Total Protein 7.1 D Albumin 3.0 L D 11/09/17 08:34 WBC RBC Hgb Hct MCV MCH MCHC RDW Plt Count MPV Neut % (Auto) Lymph % (Auto) [place] % (Auto) Eos % (Auto) Baso % (Auto) Neut # (Auto) Lymph # (Auto) [place] # (Auto) Eos # (Auto) Baso # (Auto) WBC Differential Differential Comment Sodium Potassium Chloride Carbon Dioxide Anion Gap BUN Creatinine Estimated GFR POC Glucose 203 H Random Glucose Lactic Acid Calcium Total Bilirubin AST ALT Alkaline Phosphatase Troponin I Total Protein Albumin Microbiology 11/07/17 22:25 Blood - Peripheral Aerobic Blood Culture - Preliminary No growth in 1 day 11/07/17 22:25 Blood - Peripheral Anaerobic Blood Culture - Preliminary No growth in 1 day 11/07/17 22:05 Blood - Peripheral Aerobic Blood Culture - Preliminary No growth in 1 day 11/07/17 22:05 Blood - Peripheral Anaerobic Blood Culture - Preliminary No growth in 1 day Assessment and Plan - Assessment (1) Sepsis Code(s): A41.9 - Sepsis, unspecified organism Status: Acute (2) Syncope Code(s): R55 - Syncope and collapse Status: Acute (3) DM (diabetes mellitus) Code(s): E11.9 - Type 2 diabetes mellitus without complications Status: Acute - Plan 1. Severe sepsis present on admission with fever and tachycardia and elevated lactic acid: Temp 102.6, HR 99, WBC 15, Source-Unknown and may be viral in nature, CXR w/ no acute findings, images reviewed, U/a negative for UTI, Flu negative. Reports productive cough w/ white-colored sputum, no other symptoms. Continue w/ IV Abx Rocephin and Zithromax, follow up blood cultures. 2. Syncope: likely due to sepsis/dehydration, initial trop negative, serial cardiac enzymes are negative. Check Echo to eval for valvular abnormality/ cardiomyopathy. Telemetry has shown patient has been normal sinus rhythm. 3. DM type 2 diabetes: Sliding scale w/ Accu-Cheks, restart home glipizide for now as patient's appetite has improved after admission. Continue to monitor blood sugar. 4. History of chronic hypertension essential lisinopril to be restarted, IV Vasotec as needed 5. DVT Prophylaxis: SCD/Teds Discussed with family at bedside. (1) Sepsis Qualifiers: Sepsis type: sepsis due to unspecified organism Qualified Code(s): A41.9 - Sepsis, unspecified organism (2) Syncope Qualifiers: Syncope type: vasovagal syncope Qualified Code(s): R55 - Syncope and collapse (3) DM (diabetes mellitus) Qualifiers: Diabetes mellitus type: type 2 Diabetes mellitus exterminator insulin use: without senior care use Diabetes mellitus complication status: without complication Qualified Code(s): E11.9 - Type 2 diabetes mellitus without complications
[2017-11-09] MEDS: glipiZIDE 5 MG Tablet PO SCH (09:55)
[2017-11-09] MEDS: Insulin NovoLOG Aspart Correctional Sugar Inj SQ SCH ×4 (09:56→20:21)
[2017-11-09] MEDS: Lisinopril 10 MG Tablet PO SCH (09:56)
[2017-11-09] MEDS: Senna/Docusate Sodium 8.6/50 MG Tablet PO SCH ×2 (09:56→20:31)
[2017-11-10] MEDS: Piperacil/Tazo 4.5 GM Premix 4.5 GM/100 ML BAG IV.SIG SCH ×2 (01:10→09:01)
[2017-11-10] MEDS: Insulin NovoLOG Aspart Correctional Sugar Inj SQ SCH (09:00)
[2017-11-10] MEDS: glipiZIDE 5 MG Tablet PO SCH (09:01)
[2017-11-10] MEDS: Senna/Docusate Sodium 8.6/50 MG Tablet PO SCH (09:01)
[2017-11-10] MEDS: Lisinopril 10 MG Tablet PO SCH (09:01)
[2017-11-10 09:24] VITALS: BP 188/84; RESP 17; TEMP 98.1; O2SAT 98
[2017-11-10] MEDS ORDERED: Pharmacy Ordered Lab Info OTHER ONE (11:45)
[2017-11-10 19:34] VITALS: PULSE 63
== END 2017-11-10 11:57 | disposition home or self-care (01) ==
LOC: NEPC 20:46 → NEDA 11-08 02:21 → N04 11-08 05:20
PROVIDERS: ADMIT Family Medicine; ATTEND Family Medicine
DX: I10 Essential (primary) hypertension; Z79.899 Other long term (current) drug therapy; E86.0 Dehydration; I25.2 Old myocardial infarction; E78.5 Hyperlipidemia, unspecified; E78.00 Pure hypercholesterolemia, unspecified; Z79.2 Long term (current) use of antibiotics; E11.9 Type 2 diabetes mellitus without complications; Z95.5 Presence of coronary angioplasty implant and graft; Z95.1 Presence of aortocoronary bypass graft; Z79.4 Long term (current) use of insulin; A41.9 Sepsis, unspecified organism